=== PATIENT | male | born 1970 | race Caucasian/White ===

== ENCOUNTER 2020-09-11 11:39 | Outpatient (REF) | payer OTHER, SELFPAY | END 2020-09-11 11:40 | disposition home or self-care (01) | LOC: HO.LAB 11:39 | PROVIDERS: PCP Physician Assistant; Visit Provider Internal Medicine | DX: Z20.828 Contact with and (suspected) exposure to other viral communicable diseases (principal) | CPT/HCPCS: 87635 ==

== ENCOUNTER 2020-11-28 07:56 | Day surgery (SDC) | payer OTHER, SELFPAY ==
[2020-11-21 09:38] VITALS: BMI 34.4
--- NOTE | 2020-11-26 13:53 | P.CONAN_ITS ---
Documented by User: Mirian Hernandez 11/26/20 13:53 HPI - Anesthesia Eval Consult details Narrative: 50yo M for Colonoscopy [facility] Past Medical History Medical History BPH (benign prostatic hyperplasia) History of anxiety Hypertension Lipoma Family History Family History Father Hypertension Mother No problems noted. Daughter Autism Sister Non-Hodgkin lymphoma Brother Myocardial infarction Surgical History Surgical History History of arthroscopy of right knee History of left knee surgery Social History Social History Are you a primary memory care program resident to a significant other at home: No Do you presently have visiting nurse or other home services: No Smoking Status: Never smoker Advance Directives: No Advance Directives Information Provided: No Advance Directives on File: No Recently lost weight without trying: No Meds Allergies Allergy/AdvReac Type Severity Reaction Status Date / Time No Known Allergies Allergy Verified 11/21/20 09:35 Home Medications Medication Instructions Recorded Confirmed Type hydrochlorothiazide 1 cap PO QAM 11/21/20 11/21/20 History hydroxyzine HCl 1 tab PO Q12H PRN 11/21/20 11/21/20 History tamsulosin 0.4 mg PO DAILY 11/21/20 11/21/20 History Exam Exam Date and Time: November 26, 2020 1353 Height,Weight and Vital Signs: Height 5 ft 9 in Weight 105.687 kg Assessment and Plan Assessment Anesthesia Assessment: Chart Reviewed Documented by User: Abilio Moreno 11/28/20 09:25 [facility] Past Medical History Medical History BPH (benign prostatic hyperplasia) History of anxiety Hypertension Lipoma Family History Family History Father Hypertension Mother No problems noted. Daughter Autism Sister Non-Hodgkin lymphoma Brother Myocardial infarction Surgical History Surgical History History of arthroscopy of right knee History of left knee surgery Social History Social History Are you a primary memory care program resident to a significant other at home: No Do you presently have visiting nurse or other home services: No Smoking Status: Never smoker Advance Directives: No Advance Directives Information Provided: No Advance Directives on File: No Recently lost weight without trying: No Meds Allergies Allergy/AdvReac Type Severity Reaction Status Date / Time No Known Allergies Allergy Verified 11/21/20 09:35 Home Medications Medication Instructions Recorded Confirmed Type hydrochlorothiazide 1 cap PO QAM 11/21/20 11/21/20 History hydroxyzine HCl 1 tab PO Q12H PRN 11/21/20 11/21/20 History tamsulosin 0.4 mg PO DAILY 11/21/20 11/21/20 History Exam Airway Mallampati Class: III TM Dist: >3cm Neck ROM: Full Loose/Missing/Broken Teeth: No Heart: [id number] Lungs: cta b/l Assessment and Plan Assessment Anesthesia Assessment: Anesthesia Plan Discussed and Chart Reviewed Final Anesthetic Review NPO: Yes ASA Class: II Final Preanesthetic Review: No Changes in Pt Med Stat, Meds/Allgs Chart Reviewed, Consent Obtained/Reviewed and Anes Risks/Benef Reviewed Patient Risk: Low Procedure Risk: Low Assessment/Block/Sedation in SS: Assess/Block/Sedation-SS Anesthetic Plan Anesthetic Plan: MAC: Disposition: Standard PACU
--- NOTE | 2020-11-28 08:36 | PC.NURSE ---
while inserting an iv patient became nauseous and slightly pale with some diaphoresis. patient states he gets that way sometimes when he gets some bloodwork. put patient supine, opened fluids and applied coold cloth to forehead.
[2020-11-28] MEDS: Lactated Ringers 1,000 ML 100 ML IVCONT (08:38)
[2020-11-28 08:39] VITALS: BP 135/80; PULSE 67; RESP 16; O2SAT 95
--- NOTE | 2020-11-28 08:49 | PC.NURSE ---
PATIENT STATES HE FEELS BETTER. REMOVED COOL CLOTH AND SAT PATIENT UP HOB 45 DEGREES. DECREASED FLUID BOLUS RECEIVED APPROX 300ML
[2020-11-28 08:53] VITALS: BP 130/82; PULSE 69; RESP 16; O2SAT 94
--- NOTE | 2020-11-28 09:14 | MHC.SHP ---
Pre-Procedural Eval Section B Chief Complaint: Screening Relevant Family History (Specify if Yes): No Relevant Social History: None Present Medications: see Short Stay Collaborative assessment Medical History: Significant History (BPH (benign prostatic hyperplasia) History of anxiety Hypertension Lipoma) History of Previous Operations: Relevant previous surgery/procedure and date(s) (arthroscopy) Allergies: Allergies Allergy/AdvReac Type Severity Reaction Status Date / Time No Known Allergies Allergy Verified 11/21/20 09:35 Review of Systems Sugical H&P ROS: Negative: Constitution, Cardiovascular, Respiratory, Neurological, Psychiatric, Hem-Onc, Allergic/Immunologic, Gastrointestinal, Genitourinary, Musculoskeletal, Integumentary, Endocrine and Eyes/Ears/Nose/Throat Exam Surgical H&P Exam: Normal: HEENT, Normal: Heart, Normal: Lungs, Normal: Extremities, Normal: Abdomen, Normal: Skin and Normal: Neurological Plan Diagnosis/Plan: Unchanged I have reviewed the history and physical and performed a pertinent physical examination on my patient. No changes have occurred unless specified.
--- NOTE | 2020-11-28 09:15 | P.BOP_ITS ---
Brief Operative Note Date of Service: 11/28/20 Pre-op diagnosis: colon screening Post-op diagnosis: same Procedure: Operative Information Procedure Description: Colonoscopy COLONOSCOPY Instrument: Olympus variable stiffness pediatric scope 190L Colonoscopy Monitoring: Vital signs and clinical assessment, continuous EKG monitoring, Pulse oximetry, Carbon Dioxide monitoring and blood pressure monitoring were done throughout the procedure. Colon withdrawal time was 8 minutes. Procedure: The patient was placed in the left lateral decubitis position and pre-procedure medications were administered. After a digital rectal examination of the ano-rectum, the video colonoscope was inserted into the rectum and advanced through the colon to the cecum/TI. The colonoscope was slowly withdrawn in a retrograde panoramic fashion and the colon mucosa was carefully examined including a retroflexed view of the rectum. Findings and interventions are described below. Procedure Difficulty:easy Findings: Terminal Ileum-normal Cecum:normal Ascending Colon: normal Transverse Colon -normal Descending Colon:normal Sigmoid Colon: normal Rectum: Retroflexion with small internal hemorrhoids, grade I Anorectum - normal Colon preparation: [place] Bowel Preparation Scale Right colon; 3 Transverse colon: 3 Left colon; 3 (0 = Unprepared colon segment with mucosa not seen due to solid stool that cannot be cleared. 1 = Portion of mucosa of the colon segment seen, but other areas of the colon segment not well seen due to staining, residual stool and/or opaque liquid. 2 = Minor amount of residual staining, small fragments of stool and/or opaque liquid, but mucosa of colon segment seen well. 3 = Entire mucosa of colon segment seen well with no residual staining, small fragments of stool or opaque liquid) Impression and Post Procedure Diagnosis: internal hemorrhoids Plan: High fiber diet leaflet Avoid straining at stool, epsom salts and sitz bath, anusol supps or cream Repeat Colonoscopy in 10 years or earlier if clinically indicated Above findings were reviewed with the patient and relevant handouts were provided if indicated. Surgeon: Kinsey Prado MD Anesthesia: MAC Estimated blood loss (mL): 0 Condition: stable Disposition: PACU
[2020-11-28 09:56] VITALS: BP 115/64; PULSE 67; RESP 16; TEMP 36.3; O2SAT 99
[2020-11-28 10:10] VITALS: BP 144/85; PULSE 62; RESP 16; TEMP 36.3; O2SAT 98
--- NOTE | 2020-11-28 10:23 | HO.POSTANES ---
Post Anesthesia Evaluation Post Anesthesia Evaluation Vital Signs: Vital Signs Temp Pulse Resp BP Pulse Ox 11/28/20 10:10 97.3 F 62 16 144/85 H 98 11/28/20 09:56 97.3 F 67 16 115/64 99 11/28/20 08:53 69 16 130/82 94 11/28/20 08:39 67 16 135/80 95 Anesthesia: Monitored Mental Status: Awake Pain Control: Satisfactory Nausea/Vomiting: None Hydration: Adequate Anesthesia-Related Issues: No Anes. Related Issues
== END 2020-11-28 10:49 | disposition home or self-care (01) ==
PROVIDERS: PCP Physician Assistant; Visit Provider Internal Medicine Gastroenterology
PROC: 0DJD8ZZ Inspection of Lower Intestinal Tract, Via Natural or Artificial Opening Endoscopic (ICD-10-PCS; CPT 45378; principal; 2020-11-28 09:30)
DX: Z12.11 Encounter for screening for malignant neoplasm of colon (principal); K64.0 First degree hemorrhoids; I10 Essential (primary) hypertension; N40.0 Benign prostatic hyperplasia without lower urinary tract symptoms; Z79.899 Other long term (current) drug therapy
CPT/HCPCS: 45378

== ENCOUNTER → 2020-12-11 09:37 | Outpatient (BNVA) | payer OTHER, SELFPAY | PROVIDERS: PCP Physician Assistant; Visit Provider Nurse Practitioner ==

== ENCOUNTER → 2021-10-02 10:26 | Outpatient (BNVA) | payer OTHER, SELFPAY | PROVIDERS: PCP Physician Assistant; Referring Provider Physician Assistant; Visit Provider Internal Medicine Cardiovascular Disease ==

== ENCOUNTER → 2021-10-06 09:43 | Outpatient (REF) | payer OTHER, SELFPAY ==
--- NOTE | 2021-10-06 09:49 | CA_ITS ---
Acquisition Time: 2021-10-06 09:46:22 Total Exercise Time: 00:04:22 Test Indications: Abnormal ECG Medications: HCTZ METOPROLOL Protocol: ADELFO Max HR: 134 BPM 79% of Pred: 168 BPM Max BP: 230/100 mmHG Max Work Load: 6.2 METS Exercise stress test with exercise 4 min 22 sec of Adelfo protocol, achieving 80% MPHR, with elevated BP at baseline of 166/102 and marcos to 230/100 during exercise, without anginal symptoms, without arrythmia, with nondiagnostic EKG for ischemia due to suboptimal heart rate and baseline EKG abnormality. In recovery his BP improved back to baseline, 160/100. He took his Metoprolol this am. He tells me that he does Not take HCTZ as he does not like how it makes him feel. Test reviewed with Dr Garg. Will start on Amlodipine 5mg daily. Will plan for exercise nuclear stress test in 2 weeks. Referred By: Miguel Angel Garg Overread By: CAITLYN ANGELA
--- NOTE | 2021-10-06 09:49 | CA_ITS ---
Transthoracic Echocardiogram Patient (Last, First, Middle): Levi Welsh J Gender: Male Date of : 1970 Age: 51 Procedure Date: 10/06/2021 Procedure Type: Transthoracic Echocardiogram Location: OP Height: 175.26 cm Weight: 109.77 kg BSA: 2.24 m2 Heart Rate: bpm BP: 140 / 62 mmHg Rest Room Attendant: LAYLA Referring MD: Miguel Angel Garg MD Symptoms: R94.31 - Abnormal electrocardiogram [ECG] [EKG] Study Quality: Fair/Contrast ECG Rhythm: Sinus Conclusions: - The left ventricular systolic function is normal. The visually estimated ejection fraction is between 65-70%. - There is mild calcification of the aortic valve. - No obvious valvular pathology seen on this study. Findings Procedure Information Contrast agent, definity, is being given per protocol without apparent complications. Left Ventricle Normal left ventricular cavity size. There is moderately increased left ventricular wall thickness. The left ventricular systolic function is normal. The visually estimated ejection fraction is between 65-70%. There is no evidence of regional wall motion abnormalities. Diastolic function is normal for age. Right Ventricle Normal right ventricular cavity size and systolic function. Atria Both atria are normal in size. Aortic Valve The aortic valve was not well visualized. There is mild calcification of the aortic valve. There is no aortic valve stenosis. There is trace (trivial) aortic valve regurgitation. Mitral Valve The mitral valve appears normal. There is no mitral valve regurgitation. There is no mitral valve stenosis. Pulmonic Valve The pulmonic valve was not well visualized. Tricuspid Valve Normal tricuspid valve structure. There is no tricuspid valve regurgitation. The pulmonary artery systolic pressure is normal. Great Vessels The aortic annulus, sinuses of valsalva, asc aorta, and aortic arch are normal in size. Venous The inferior vena cava is normal in size and collapses greater than 50% with inspiration. Pericardium/Pleural There is no evidence of pericardial effusion. Prior Study Comparison No prior study available for comparison. Recommendations, Care & Conclusions No obvious valvular pathology seen on this study. Measurements 2D Linear Measurements IVSd: 1.15 0.6-0.9/0.6-1.0 cm LVIDd: 4.32 3.9-5.3/4.2-5.9 cm LVIDd Index: 1.93 2.4-3.2/2.2-3.1 cm/m2 LVIDs: 2.82 2.0-3.6 cm LVPWd: 1.19 0.7-1.1 cm Ao Root: 3.20 2.1-3.5 cm LA Diam: 3.40 2.7-3.8/3.0-4.0 cm LAIDs Index: 1.52 1.5-2.3 cm/m2 LV Mass: 223.38 67-162/88-224 g LV Mass Index: 99.72 43-95/49-115 g/m2 LVOT Diam: 2.00 3.0+(-)1.3 cm 2D Systolic Function EF 4C: 63.80 >55% EF 2C: 62.00 >55% EF BiP: 63.10 >55% Mitral Valve MV Pk E: 0.77 MV PK A: 0.65 MV Decel Time: 257.00 E/A: 1.20 E'Lateral: 8.16 E'Medial: 6.53 E/E' Med: 11.70 E/E' Lat: 9.40 PHT: 75.00 MVA PHT: 2.93 Decel [place]: 2.98 Aortic Valve AoV Pk Sanchez: 1.87 AoV Mn Sanchez: 1.32 AoV VTI: 0.37 AoV Pk Grad: 14.00 Aov Mn Grad: 8.00 ANTONIO Cont.VTI: 2.22 LVOT LVOT Pk Sanchez: 1.41 LVOT Mn Sanchez: 0.96 LVOT VTI: 0.27 LVOT Pk Grad: 8.00 LVOT Mn Grad: 4.00 LVOT Diam: 2.00 LVOT Area: 3.14 Diastolic Function MV Pk E: 0.77 MV Pk A: 0.65 E/A: 1.20 E'Medial: 6.53 E/E' Med: 11.70 E' Laterial: 8.16 E/E' Lat: 9.40 Right Ventricle TAPSE (mm): 2.19 TVS' Sanchez: 12.70 Tricuspid Valve TR Pk Sanchez: 1.75 TR Pk Grad: 12.00 RA Press: 3.00 RVSP: 15.00 Great Vessels Aorta Ao Root-2D: 3.20 2.0-3.7 cm Ao Asc: 3.20 2.1-3.4 cm Ao Arch: 3.00 Updated in Other Vendor System with Status of Final Thony Erickson MD electronically signed on 10/06/2021 4:59:44 PM with status of Final
== END ==
LOC: HO.CARD 09:43
PROVIDERS: PCP Physician Assistant; Visit Provider Internal Medicine Cardiovascular Disease
DX: R94.31 Abnormal electrocardiogram [ECG] [EKG] (principal)
CPT/HCPCS: 93017; 93306; Q9957

== ENCOUNTER → 2021-10-15 07:52 | Outpatient (REF) | payer OTHER, SELFPAY ==
--- NOTE | ~2021-10-15 | NM_ITS ---
Myocardial perfusion study Indication: Hypertension to evaluate for myocardial ischemia Technique: The patient was brought in for a Lexiscan perfusion study on 10/15/2021. Patient performed low-level exercise and was injected 0.4 mg of Lexiscan intravenously. Within a minute of injection, 40 mCi of sestamibi was given intravenously. Images were obtained using the SPECT gamma camera interlaced with the gating device. Images were obtained in supine position. Resting perfusion study was performed on 10/20/2021. Patient was administered 40 mCi of sestamibi intravenously at rest. Images were then obtained in supine position. Images obtained with and without CT attenuation. Total DLP 116 mGy-cm. Images were processed with the software and compared side to side in short axis, horizontal long axis and vertical long axis views. Findings: The stress perfusion study showed non attenuated images show minimally reduced uptake in the basal and mid inferior wall of the LV myocardium. Remainder of the LV myocardium normally perfused. Attenuation corrected images show normal uptake of radiotracer in all segments of LV myocardium with minimally reduced the apex.. The gated study shows low normal LV systolic function with calculated LVEF of 52%. LV cavity is normal in size. The gated study shows normal systolic wall thickening and contraction of segments. Resting study shows nontender images show no significant change in uptake in radiotracer of LV myocardium. Attenuation corrected images show mildly reduced uptake in the apex of the LV myocardium. Gating at rest reveals normal systolic wall motion with ejection fraction at 55%. The findings are consistent with likely normal myocardial perfusion. NM/NM cardiolite stress test Impression: 1. Myocardial perfusion imaging study shows likely normal myocardial perfusion 2. Gated LVEF is 55% 3. Transient ischemic dilatation not present EKG is nondiagnostic for ischemia
--- NOTE | 2021-10-15 08:00 | CA_ITS ---
Acquisition Time: 2021-10-15 08:31:01 Total Exercise Time: 00:07:01 Test Indications: Abnormal ECG Medications: AMLODIPINE METOPROLOL Protocol: LIVIA Max HR: 129 BPM 76% of Pred: 168 BPM Max BP: 162/090 mmHG Max Work Load: 8.5 METS Exercise stress test with exercise 7 min 1 sec of Livia protocol achieving 76% MPHR and request to stop due to fatigue, no chest discomfort, without arrythmia, with normotensive response to exercise, with nondiagnostic EKG for ischemia. Treadmill placed in recoveryand slowed to 1 MPH. Testing changed to a pharmacological stress test with Lexiscan injection, without anginal symptoms, without arrythmia, with normotensive response to injection, with nondiagnostic EKG for ischemia. Nuclear images pending. Test reviewed with Dr Garg. Referred By: Makayla Elizabeth Overread By: MAKAYLA ELIZABETH
== END ==
LOC: HO.CARD 07:52
PROVIDERS: PCP Physician Assistant; Visit Provider Nurse Practitioner Family
DX: I10 Essential (primary) hypertension (principal); I51.7 Cardiomegaly; R94.31 Abnormal electrocardiogram [ECG] [EKG]; Z79.899 Other long term (current) drug therapy
CPT/HCPCS: 78452; 93017; A9500; J0280; J2785

== ENCOUNTER → 2021-10-23 12:53 | Outpatient (BNVA) | payer OTHER, SELFPAY | PROVIDERS: PCP Physician Assistant; Referring Provider Physician Assistant; Visit Provider Nurse Practitioner Family ==

== ENCOUNTER 2021-12-18 11:47 | Outpatient (REF) | payer OTHER, SELFPAY ==
[2021-12-18 12:58] LABS: Alanine Aminotransferase 66 U/L (0-40); Albumin Level 4.5 g/dL (3.5-5.0); Alkaline Phosphatase 122 U/L (39-117); Anion Gap 12 (12-20); Aspartate Amino Transferase 48 U/L (5-37); Bilirubin Total 0.7 mg/dL (0.0-1.0); Blood Urea Nitrogen 22 mg/dL (9-16); Calcium 9.9 mg/dL (8.4-10.2); Carbon Dioxide 25 mmol/L (22-29); Chloride 105 mmol/L (96-108); Cholesterol 137 mg/dL; Estimated Glomerular Filt Rate > 60; Glucose Fasting 105 mg/dL (60-99); HDL Cholesterol 37 mg/dL; LDL Cholesterol Calculated 83 mg/dl; Potassium 4.4 mmol/L (3.3-5.1); Sodium 138 mmol/L (135-145); Total Protein 7.8 g/dL (6.5-8.0); Triglycerides 85 mg/dL
[2021-12-18 13:22] LABS: Prostate Specific Antigen Scr 3.31 ng/mL (<0.05-4.0)
[2021-12-19 08:56] LABS: Varicella IgG Antibody <135.00 index
== END 2021-12-18 11:48 | disposition home or self-care (01) ==
LOC: HO.LAB 11:47
PROVIDERS: Absent Provider Physician Assistant; PCP Physician Assistant; Referring Provider Physician Assistant; Visit Provider Nurse Practitioner Family
DX: Z01.84 Encounter for antibody response examination (principal); Z12.5 Encounter for screening for malignant neoplasm of prostate; I11.9 Hypertensive heart disease without heart failure; Z78.9 Other specified health status
CPT/HCPCS: 36415; 80053; 80061; 84153; 86787

== ENCOUNTER 2023-09-22 11:30 | Outpatient (AMB) | payer OTHER, SELFPAY ==
[2023-09-22 11:43] VITALS: BP 152/94; PULSE 75; RESP 17; O2SAT 98; BMI 36.4
--- NOTE | 2023-09-22 11:43 | MHC.PC.OV ---
Vital Signs 09/22/23 11:43 Height 5 ft 9 in Weight 246 lb 8 oz BMI 36.4 BP 152/94 H Blood Pressure Location Lt brachial Position Sitting Respiration 17 Pulse 75 Pulse Source Pulse Oximeter Pulse Oximetry (%) 98 Oxygen Delivery Method Room Air Intake Visit Reasons: follow up HTN Allergies No Known Allergies Allergy (Verified 09/22/23 12:13) Medication List - Last Reconciled 09/22/23 by Dmitri Alicia PA-C amlodipine 5 mg PO DAILY metoprolol succinate ER 100 mg PO DAILY Tobacco use date assessed: 09/22/23 Dental Screening Dental Screen Date: 09/22/23 Did you have a dental visit in the last 12 months?: Yes Did you have a dental problem in the last 6 months where you did not have access to dental care?: No Was dental information given to patient?: Patient has dentist HPI follow up HTN HPI Details Patient is a 53-year-old male here today for a follow-up visit. Patient has a past medical history significant for hypertension, LVH, obesity. .. Hypertension: Patient's blood pressure elevated today in office. He was sent home blood pressures been stable on current dose of metoprolol and amlodipine. He otherwise denies any chest discomfort, shortness of breath, headaches. He does report having an episode vertigo which he was seen at urgent care was treated for ear infection which subsided his symptoms. Apneic episodes: Does report snoring at night and needing to sleep in a different room as his due to the loud snoring. He does have risk factors for obstructive sleep apnea including large neck girth, obesity ect.. Of note does have LVH on EKG. Farn[place] Sleepiness Scale score of 8 today in office. Will try to set him up with an home sleep study to evaluate for obstructive sleep apnea [facility] Medical History (Updated 09/22/23 @ 13:01 by Dmitri Alicia PA-C) Colon cancer screening Hypertensive heart disease LVH (left ventricular hypertrophy) History of anxiety BPH (benign prostatic hyperplasia) Lipoma Hypertension Surgical History Hx of colonoscopy History of left knee surgery History of arthroscopy of right knee Family History Father Hypertension Mother No problems noted. Daughter Autism Sister Non-Hodgkin lymphoma Brother Myocardial infarction Social History Household Members: Family Housing: House Are you a primary healthcare consultant to a significant other at home: No Do you presently have visiting nurse or other home services: No Alcohol intake: current Alcohol intake frequency: a few times a week Patient Tobacco Use Status: Never used Tobacco e-Cigarette/Vaping Use: Never Used service: No Current occupational status: employed Cognitive needs: No Hearing needs: No Vision needs: No Questionnaire PHQ-9 Over the last 2 weeks, how often have you been bothered by any of the following problems? 1. Little interest or pleasure in doing things: not at all 2. Feeling down, depressed, or hopeless: not at all 3. Trouble falling or staying asleep, or sleeping too much: not at all 4. Feeling tired or having little energy: not at all 5. Poor appetite or overeating: not at all 6. Feeling bad about yourself - or that you are a failure or have let yourself or your family down: not at all 7. Trouble concentrating on things, such as reading the newspaper or watching television: not at all 8. Moving or speaking so slowly that other people could have noticed. Or the opposite - being so fidgety or restless that you have been moving around a lot more than usual: not at all 9. Thoughts that you would be better off or of hurting yourself in some way: not at all Total score: 0 Depression Screening Interpretation: Negative Depression Screening Done: Yes 43555 - PHQ-9 Billing: Yes Source: Developed by Drs. Levi Salgado, Mayra Ibarra, Shabbir Mills and colleagues, with an educational carisa from [employer]. Thrive Questionnaire Date Thrive assessed: 09/22/23 I am a: Patient What is your living situation today?: I have a steady place to live Within the past 12 months, did the food you bought not last and you didn't have the money to get more?: Never true Within the past 12 months, did you worry whether your food would run out before you got money to buy more?: Never true Do you have trouble paying for medicines?: No Do you have trouble getting transportation to medical appointments?: No Do you have trouble paying your heating and electricity bill?: No Do you have trouble taking care of your child, family member or friend?: No Do you have trouble with day-to-day activities such as bathing, preparing meals, shopping, managing finances, etc.?: No Are you currently unemployed and looking for a job?: No Are you interested in more education?: No Please select the resources that you would like help with: None Currently or been in a relationship where the following occur: no concerns reported AUDIT C Alcohol Use Questionnaire (AUDIT-C) 1. How often do you have a drink containing alcohol?: Monthly or less 2. How many drinks containing alcohol do you have on a typical day when you are drinking?: 1 or 2 3. How often do you have six or more drinks on one occasion?: Never Total Score: 1 JAMI-7 AMB Questionnaire JAIM-7 Date JAMI - 7 assessed: 09/22/23 Feeling nervous, anxious, or on edge: 0 = Not at all Not being able to stop or control worryin = Not at all Worrying too much about different things: 0 = Not at all Trouble relaxin = Not at all Being so restless that it is hard to sit still: 0 = Not at all Becoming easily annoyed or irritable: 0 = Not at all Feeling afraid as if something awful might happen: 0 = Not at all Total JAMI-7 score (0-4 normal; 5-9 mild; 10-14 moderate; 15-21 severe): 0 Source: Developed by Drs. Levi Salgado, Mayra Ibarra, Shabbir Mills and colleagues, with an educational carisa from [employer]. JAMI-7 Assessment Billing JAMI-7 Assessment Tool: JAMI-7 Assessment 54519 Review of Systems Const Denies headache(s) Eyes Denies loss of vision ENT Denies vertigo, Denies dizziness, Denies headache(s) and Denies sore throat Card Denies chest pain, Denies leg edema and Denies lightheadedness Resp Denies cough, Denies hemoptysis and Denies wheezing GI Denies abdominal pain, Denies melena, Denies constipation, Denies diarrhea and Denies vomiting Denies dysuria, Denies urinary frequency and Denies urinary urgency Musc Denies arthralgias, Denies joint swelling, Denies numbness and Denies tingling Neuro Denies Abnormal speech present, Denies behavioral changes, Denies vertigo, Denies dizziness, Denies headache(s), Denies loss of vision, Denies memory loss, Denies numbness and Denies tingling Psych Denies anxiety, Denies behavioral changes, Denies depression, Denies memory loss and Denies panic attacks Bob/Lymph Denies easy bleeding and Denies easy bruising Aller/Immun Denies wheezing Physical exam (Primary Care) Vital Signs: Last Vital Signs Pulse 75 09/22/23 11:43 Resp 17 09/22/23 11:43 BP 152/94 H 09/22/23 11:43 Pulse Ox 98 09/22/23 11:43 Oxygen Delivery Method Room Air 09/22/23 11:43 BMI result Body Mass Index 36.4 BMI Assessment/Plan discussion: High Tobacco/Smoking Status: Tobacco use Status Tobacco use date assessed 09/22/23 09/22/23 11:56 Patient Tobacco Use Status Never used Tobacco 09/22/23 11:43 e-Cigarette/Vaping Use Never Used 09/22/23 11:43 PHQ-9: PHQ-9 Score PHQ-9: Total score 0 09/22/23 12:19 Depression Screening Interpretation: Negative Thrive Assessment: Date of Thrive Assessment Date Thrive assessed 09/22/23 09/22/23 11:53 Currently or been in a relationship where the following occur: no concerns reported Const Other: Obese General: healthy appearing, no acute distress, alert and awake Nutritional Appearance: well nourished Orientation/consciousness: oriented to person, oriented to place and oriented to time HENMT Ears: TM's normal bilaterally General nose exam: Normal nasal mucous membranes and turbinates present Eyes Conjunctivae: conjunctivae normal Sclerae: sclerae normal Pupils: Equal, round and reactive pupils present Neck Neck: Yes no lymphadenopathy and Yes no JVD Thyroid: Thyroid normal Carotids: no bruits Resp Effort & Inspection: normal respiratory effort and not tachypneic Auscultation: no crackles, no rales, no rhonchi and no wheezes Cardio Rate: regular rate Rhythm: regular rhythm Heart sounds: no murmurs and normal S1 and S2 GI Palpation (GI): Soft to palpation, nontender, no hepatomegaly and no splenomegaly Auscultation: normal bowel sounds Skin General skin exam: no rashes or lesions noted and dry skin Neuro General: oriented to person, oriented to place and oriented to time Cranial nerves: Yes Equal, round and reactive pupils present Speech: No Abnormal speech present Gait exam (Neuro): Normal gait present Motor exam (neuro): no tremor noted Extrem Right upper extremity: full ROM Left upper extremity: full ROM Right lower extremity: full ROM; no edema Left lower extremity: full ROM; no edema Psych Mental Status: mental status grossly normal Speech and movement: Normal speech and movement present Affect: normal affect Attitude: cooperative Thought process: Normal thought process present Assessment and Plan Assessment & Plan (1) Hypertension: Code(s): I10 - Essential (primary) hypertension Qualifiers: Hypertension type: primary hypertension Qualified Code(s): I10 - Essential (primary) hypertension Plan: Patient's blood pressure today in office elevated. Of note did gain weight since last office visit. He reports his blood pressures at home have been more regularly controlled 120s over 80s. He denies any headaches, chest pain or shortness of breath. Will continue his current of amlodipine and metoprolol at this time. Will continue monitoring blood pressure at home. (2) JOEY (obstructive sleep apnea): Code(s): G47.33 - Obstructive sleep apnea (adult) (pediatric) Plan: There are some concerns here for obstructive sleep apnea. Patient is obese and does have large neck girth. Does report some daytime somnolence as well. Farnham Sleepiness Scale score of 8. Will send for home sleep study to evaluate for obstructive sleep apnea. (3) Obese: Code(s): E66.9 - Obesity, unspecified Qualifiers: Obesity type: due to excess calories Obesity classification: adult class 2 (BMI 35 - 39.9) Serious obesity comorbidity presence: with serious comorbidity Body mass index: BMI 36.0-36.9 Qualified Code(s): E66.01 - Morbid (severe) obesity due to excess calories; Z68.36 - Body mass index [BMI] 36.0-36.9, adult Plan: Patient does understand his BMI is over 30 will work on being more physically active and adapting to better eating habits to reduce his weight. Orders: Orders Lipid Panel Today I11.9 - Hypertensive heart disease without heart failure Microalbumin, Random (w Creat) Today I10 - Essential (primary) hypertension Comprehensive [place]. Panel Fast Today I10 - Essential (primary) hypertension Complete Blood Count no Diff Today I10 - Essential (primary) hypertension Prostate Specific Antigen Scr Today I11.9 - Hypertensive heart disease without heart failure, Z12.5 - Encounter for screening for malignant neoplasm of prostate RT home sleep study Today G47.33 - Obstructive sleep apnea (adult) (pediatric) Medications: Changed From metoprolol succinate ER 100 mg PO DAILY 30 tabs 0RF I10 - Essential (primary) hypertension To metoprolol succinate ER 100 mg PO DAILY 90 days 90 tabs 1RF I10 - Essential (primary) hypertension From amlodipine Please call to schedule an appt for refills 5 mg PO DAILY 30 tabs 0RF I10 - Essential (primary) hypertension To amlodipine 5 mg PO DAILY 90 days 90 tabs 1RF I10 - Essential (primary) hypertension Coding Level of Care Code Est Pt Level 4 (10075) Diagnoses Primary hypertension I10 Hypertension type: primary hypertension JOEY (obstructive sleep apnea) G47.33 Class 2 severe obesity due to excess calories with serious comorbidity and body mass index (BMI) of 36.0 to 36.9 in adult E66.01; Z68.36 Obesity type: due to excess calories Obesity classification: adult class 2 (BMI 35 - 39.9) Serious obesity comorbidity presence: with serious comorbidity Body mass index: BMI 36.0-36.9 Additional Codes JAMI-7 Assessment Billing - JAMI-7 Assessment Tool: JAMI-7 Assessment [id number] ([id number])
== END 2023-09-22 12:31 | disposition home or self-care (01) ==
PROVIDERS: PCP Physician Assistant; Visit Provider Physician Assistant
DX: I10 Essential (primary) hypertension (principal); G47.33 Obstructive sleep apnea (adult) (pediatric); E66.01 Morbid (severe) obesity due to excess calories; Z68.36 Body mass index [BMI] 36.0-36.9, adult
CPT/HCPCS: 99214

== ENCOUNTER 2023-09-30 10:57 | Outpatient (REF) | payer OTHER, SELFPAY ==
[2023-09-30 12:03] LABS: Hematocrit 46.5 % (42.0-52.0); Hemoglobin 15.8 g/dl (14.0-18.0); Mean Corpuscular Volume 88.2 fL (80.0-98.0); Mean Platelet Volume 10.2 fL (9.4-12.4); Platelet Count 317 X10*3/uL (160-400); Red Blood Count 5.27 X10*6/uL (4.60-5.80); Red Cell Distribution Width 11.9 % (11.0-16.0); White Blood Count 8.5 X10*3/uL (4.8-10.8)
[2023-09-30 12:45] LABS: Creatinine Urine 212.96 mg/dL; Microalbum/Creatinine Ratio Ur 48.8 ug/mg cr (<30)
[2023-09-30 12:52] LABS: Alanine Aminotransferase 69 U/L (0-40); Albumin Level 4.3 g/dL (3.5-5.0); Alkaline Phosphatase 154 U/L (39-117); Anion Gap 10 (12-20); Aspartate Amino Transferase 53 U/L (5-37); Bilirubin Total 0.6 mg/dL (0.0-1.0); Blood Urea Nitrogen 18 mg/dL (9-16); Calcium 9.2 mg/dL (8.4-10.2); Carbon Dioxide 28 mmol/L (22-29); Chloride 106 mmol/L (96-108); Cholesterol 147 mg/dL (<200); Estimated Glomerular Filt Rate > 60; Glucose Fasting 108 mg/dL (60-99); HDL Cholesterol 41 mg/dL (>40); LDL Cholesterol Calculated 92 mg/dL (<100); Potassium 4.3 mmol/L (3.3-5.1); Sodium 140 mmol/L (135-145); Total Protein 7.6 g/dL (6.5-8.0); Triglycerides 70 mg/dL (<150)
== END 2023-09-30 10:58 | disposition home or self-care (01) ==
LOC: HO.LAB 10:57
PROVIDERS: PCP Physician Assistant; Visit Provider Physician Assistant
DX: Z12.5 Encounter for screening for malignant neoplasm of prostate (principal); I11.9 Hypertensive heart disease without heart failure
CPT/HCPCS: 36415; 80053; 80061; 82043; 82570; 84153; 85027

== ENCOUNTER → 2023-11-02 12:49 | Outpatient (REF) | payer OTHER, SELFPAY | LOC: HO.SL 12:49 | PROVIDERS: PCP Physician Assistant; Visit Provider Physician Assistant | DX: Z13.89 Encounter for screening for other disorder (principal) ==

== ENCOUNTER 2024-01-05 09:59 | Outpatient (AMB) | payer OTHER, SELFPAY ==
[2024-01-05 10:27] VITALS: BP 120/74; PULSE 60; O2SAT 95; BMI 35.9
--- NOTE | 2024-01-05 10:27 | A.OFFPC_ITS ---
Vital Signs 01/05/24 10:27 Height 5 ft 9 in Weight 243 lb 6 oz BMI 35.9 BP 120/74 Blood Pressure Location Lt brachial Position Sitting Pulse 60 Pulse Source Pulse Oximeter Pulse Oximetry (%) 95 Oxygen Delivery Method Room Air Intake Visit Reasons: 3 month f/u [employer] Required: No Accompanied by: Self / Same As Patient Allergies No Known Allergies Allergy (Verified 01/05/24 10:47) Medication List - Last Reconciled 01/05/24 by Dmitri Alicia PA-C amlodipine 5 mg PO DAILY 90 days metoprolol succinate ER 100 mg PO DAILY 90 days Tobacco use date assessed: 01/05/24 Dental Screening Dental Screen Date: 01/05/24 Did you have a dental visit in the last 12 months?: Yes Did you have a dental problem in the last 6 months where you did not have access to dental care?: No Was dental information given to patient?: Patient has dentist HPI 3 month f/u HPI Details Patient is a 53-year-old male here today for a follow-up visit. Patient has a past medical history significant for hypertension, LVH, obesity. Concern--> reports having increased anxiety and work-related stress. He is interested in speaking to a mental therapist in starting medication for his anxiety. .. Obesity: He has lost a few lb since last office visit, has been more physically active and going to the gym several times a week. .. Hypertension: Patient's blood pressure today in office acceptable He was sent home blood pressures been stable on current dose of metoprolol and amlodipine. He otherwise denies any chest discomfort, shortness of breath, headaches. . Apneic episodes: Was unable to tolerate sleep study. He is holding off on being evaluated for obstructive sleep apnea for now. Laboratory Tests 10/24/18 05/29/20 09/30/23 09:08 12:13 11:26 Fasting Glucose AST 44 H 44 H ALT 63 H Alkaline Phosphata se Cholesterol PSA Screen Urine Microalbumin 104.0 09/30/23 09/30/23 11:27 11:27 Fasting Glucose 108 H AST 53 H ALT 69 H Alkaline Phosphata se 154 H Cholesterol 147 PSA Screen 3.00 Urine Microalbumin PFSH Medical History (Updated 01/05/24 @ 10:53 by Dmitri Alicia PA-C) Colon cancer screening Hypertensive heart disease LVH (left ventricular hypertrophy) History of anxiety BPH (benign prostatic hyperplasia) Lipoma Hypertension Surgical History Hx of colonoscopy History of left knee surgery History of arthroscopy of right knee Family History Father Hypertension Mother No problems noted. Daughter Autism Sister Non-Hodgkin lymphoma Brother Myocardial infarction Social History Household Members: Family Housing: House Are you a primary disabilities caregiver to a significant other at home: No Do you presently have visiting nurse or other home services: No Alcohol intake: current Alcohol intake frequency: a few times a week Patient Tobacco Use Status: Never used Tobacco e-Cigarette/Vaping Use: Never Used service: No Current occupational status: employed Cognitive needs: No Hearing needs: No Vision needs: No Questionnaire PHQ-9 Over the last 2 weeks, how often have you been bothered by any of the following problems? 1. Little interest or pleasure in doing things: not at all 2. Feeling down, depressed, or hopeless: not at all 3. Trouble falling or staying asleep, or sleeping too much: not at all 4. Feeling tired or having little energy: not at all 5. Poor appetite or overeating: not at all 6. Feeling bad about yourself - or that you are a failure or have let yourself or your family down: not at all 7. Trouble concentrating on things, such as reading the newspaper or watching television: not at all 8. Moving or speaking so slowly that other people could have noticed. Or the opposite - being so fidgety or restless that you have been moving around a lot more than usual: not at all 9. Thoughts that you would be better off or of hurting yourself in some way: not at all Total score: 0 Depression Screening Interpretation: Negative Depression Screening Done: Yes 87545 - PHQ-9 Billing: Yes Source: Developed by Drs. Levi Salgado, Mayra Ibarra, Shabbir Mills and colleagues, with an educational carisa from [employer]. Thrive Questionnaire Date Thrive assessed: 01/05/24 I am a: Patient What is your living situation today?: I have a steady place to live Within the past 12 months, did the food you bought not last and you didn't have the money to get more?: Never true Within the past 12 months, did you worry whether your food would run out before you got money to buy more?: Never true Do you have trouble paying for medicines?: No Do you have trouble getting transportation to medical appointments?: No Do you have trouble paying your heating and electricity bill?: No Do you have trouble taking care of your child, family member or friend?: No Do you have trouble with day-to-day activities such as bathing, preparing meals, shopping, managing finances, etc.?: No Are you currently unemployed and looking for a job?: No Are you interested in more education?: No Please select the resources that you would like help with: None Currently or been in a relationship where the following occur: no concerns reported THRIVE Score: 0 AUDIT C Alcohol Use Questionnaire (AUDIT-C) 1. How often do you have a drink containing alcohol?: Monthly or less 2. How many drinks containing alcohol do you have on a typical day when you are drinking?: 1 or 2 3. How often do you have six or more drinks on one occasion?: Never Total Score: 1 JAMI-7 AMB Questionnaire JAMI-7 Date JAMI - 7 assessed: 01/05/24 Feeling nervous, anxious, or on edge: 0 = Not at all Not being able to stop or control worryin = Not at all Worrying too much about different things: 0 = Not at all Trouble relaxin = Not at all Being so restless that it is hard to sit still: 0 = Not at all Becoming easily annoyed or irritable: 0 = Not at all Feeling afraid as if something awful might happen: 0 = Not at all Total JAMI-7 score (0-4 normal; 5-9 mild; 10-14 moderate; 15-21 severe): 0 Source: Developed by Drs. Levi Salgado, Mayra Ibarra, Shabbir Mills and colleagues, with an educational carisa from [employer]. JAMI-7 Assessment Billing JAMI-7 Assessment Tool: JAMI-7 Assessment 81409 Review of Systems Const Denies excessive sweating, Denies fatigue and Denies headache(s) Eyes Denies loss of vision ENT Denies vertigo, Denies dizziness, Denies headache(s) and Denies sore throat Card Denies chest pain, Denies leg edema and Denies lightheadedness Resp Denies cough, Denies hemoptysis and Denies wheezing GI Denies abdominal pain, Denies melena, Denies constipation, Denies diarrhea and Denies vomiting Denies dysuria, Denies urinary frequency and Denies urinary urgency Musc Denies arthralgias, Denies joint swelling, Denies numbness and Denies tingling Skin/Breast Denies rash and Denies skin ulcer Neuro Denies Abnormal speech present, Denies behavioral changes, Denies vertigo, Denies dizziness, Denies headache(s), Denies loss of vision, Denies memory loss, Denies numbness and Denies tingling Psych Denies anxiety, Denies behavioral changes, Denies depression, Denies memory loss and Denies panic attacks Endo Denies excessive sweating, Denies fatigue, Denies flushing, Denies polydipsia and Denies polyuria Bob/Lymph Denies easy bleeding and Denies easy bruising Aller/Immun Denies wheezing Physical exam (Primary Care) Vital Signs: Last Vital Signs Pulse 60 01/05/24 10:27 BP 120/74 01/05/24 10:27 Pulse Ox 95 01/05/24 10:27 Oxygen Delivery Method Room Air 01/05/24 10:27 BMI result Body Mass Index 35.9 Tobacco/Smoking Status: Tobacco use Status Tobacco use date assessed 01/05/24 01/05/24 10:29 Patient Tobacco Use Status Never used Tobacco 01/05/24 10:27 e-Cigarette/Vaping Use Never Used 01/05/24 10:27 PHQ-9: PHQ-9 Score PHQ-9: Total score 0 01/05/24 10:38 Depression Screening Interpretation: Negative Thrive Assessment: Date of Thrive Assessment Date Thrive assessed 01/05/24 01/05/24 10:38 Currently or been in a relationship where the following occur: no concerns reported Const General: healthy appearing, no acute distress, alert and awake Nutritional Appearance: well nourished Orientation/consciousness: oriented to person, oriented to place and oriented to time HENMT Head: Yes normocephalic Ears: TM's normal bilaterally General nose exam: Normal nasal mucous membranes and turbinates present Face and sinus: No sinus tenderness Mouth: Normal oral and palatal mucosa present and tongue normal Teeth and gingiva: dentition normal and gingiva normal Throat: Yes posterior oropharynx normal, Yes tonsils normal and Yes uvula midline Eyes Conjunctivae: conjunctivae normal Sclerae: sclerae normal Pupils: Equal, round and reactive pupils present EOM: EOMs intact bilaterally Direct Ophthalmoscopy: No no photophobia Neck Neck: Yes no lymphadenopathy and Yes no JVD Thyroid: Thyroid normal Carotids: no bruits Chest Chest palpation & inspection: no tenderness Resp Effort & Inspection: normal respiratory effort and not tachypneic Auscultation: no crackles, no rales, no rhonchi and no wheezes Cardio Jugular venous distension: no JVD Rate: regular rate Rhythm: regular rhythm Heart sounds: no murmurs and normal S1 and S2 Bruits: no carotid bruits Peripheral pulses: Peripheral pulses 2+ throughout GI Inspection: Yes normal to inspection, No abdominal wall ecchymosis and No visible herniation Palpation (GI): Soft to palpation, nontender, no hepatomegaly and no splenomegaly Auscultation: normal bowel sounds General: Yes no CVA tenderness Back/Spine/Pelvis Back: no CVA tenderness and No back tenderness Cervical Spine: cervical ROM normal Thoracic/Lumbar Spine: thoracic and lumbar spine normal to inspection, straight leg raise negative bilaterally, No thoraco-lumbar ROM limited and No lumbar spinal tenderness Skin General skin exam: no rashes or lesions noted and dry skin Lesions: no lesions Rashes: no rashes Wounds: no wounds Neuro General: oriented to person, oriented to place and oriented to time Cranial nerves: Yes Equal, round and reactive pupils present Cognition (Neuro): normal cognition Speech: No Abnormal speech present Gait exam (Neuro): Normal gait present Motor exam (neuro): no tremor noted Extrem Right upper extremity: full ROM Left upper extremity: full ROM Right lower extremity: full ROM; no edema Left lower extremity: full ROM; no edema Psych Appearance: grossly normal Mental Status: mental status grossly normal Speech and movement: Normal speech and movement present Affect: normal affect Attitude: cooperative Thought process: Normal thought process present Assessment and Plan Assessment & Plan (1) Hypertension: Code(s): I10 - Essential (primary) hypertension Qualifiers: Hypertension type: primary hypertension Qualified Code(s): I10 - Essential (primary) hypertension Plan: Patient's blood pressure today acceptable. Of note did gain weight since last office visit. He reports his blood pressures at home have been more regularly controlled 120s- 130s over 80s. He denies any headaches, chest pain or shortness of breath. Will continue his current of amlodipine and metoprolol at this time. Will continue monitoring blood pressure at home. (2) JOEY (obstructive sleep apnea): Code(s): G47.33 - Obstructive sleep apnea (adult) (pediatric) Plan: Was unable to tolerate sleep study. . [place] Sleepiness Scale score of 8. (3) Obese: Code(s): E66.9 - Obesity, unspecified Qualifiers: Obesity type: due to excess calories Obesity classification: adult class 2 (BMI 35 - 39.9) Serious obesity comorbidity presence: with serious comorbidity Body mass index: BMI 36.0-36.9 Qualified Code(s): E66.01 - Morbid (severe) obesity due to excess calories; Z68.36 - Body mass index [BMI] 36.0- 36.9, adult Plan: Has lost a few lb since last office visit, has been going to the gym regularly. Patient does understand his BMI is over 30 will work on being more physically active and adapting to better eating habits to reduce his weight. (4) Erectile dysfunction: Code(s): N52.9 - Male erectile dysfunction, unspecified Qualifiers: Erectile dysfunction type: due to other cause Qualified Code(s): N52.8 - Other male erectile dysfunction Plan: Reports having issues with erectile dysfunction would like to try medication before sexual activity. (5) JAMI (generalized anxiety disorder): Code(s): F41.1 - Generalized anxiety disorder Plan: He reports he is interested in speaking to a mental health therapist about his anxiety. A lot of his trigger is his disabled daughter in his work related stress. He is interested in also starting SSRI therapy on a daily basis to reduce his anxiety. Will follow-up in 4 weeks to evaluate the effectiveness of the medication Orders: Orders Microalbumin, Random (w Creat) Today I10 - Essential (primary) hypertension Lipid Panel Today I11.9 - Hypertensive heart disease without heart failure Comprehensive [place]ely. Panel Fast Today I10 - Essential (primary) hypertension Prostate Specific Antigen Scr Today I10 - Essential (primary) hypertension, Z12.5 - Encounter for screening for malignant neoplasm of prostate Referrals Counseling Referral F41.1 - Generalized anxiety disorder, Z13.220 - Encounter for screening for lipoid disorders Medications: New citalopram (Celexa) 10 mg PO DAILY 30 days 30 tabs 3RF F41.1 - Generalized anxiety disorder sildenafil 100 mg PO DAILY 5 days 5 tabs 0RF N52.8 - Other male erectile dysfunction Refilled amlodipine 5 mg PO DAILY 90 days 90 tabs 1RF I10 - Essential (primary) hypertension metoprolol succinate ER 100 mg PO DAILY 90 days 90 tabs 1RF I10 - Essential (primary) hypertension Coding Level of Care Code Est Pt Level 4 (21330) Diagnoses Primary hypertension I10 Hypertension type: primary hypertension JOEY (obstructive sleep apnea) G47.33 Class 2 severe obesity due to excess calories with serious comorbidity and body mass index (BMI) of 36.0 to 36.9 in adult E66.01; Z68.36 Obesity type: due to excess calories Obesity classification: adult class 2 (BMI 35 - 39.9) Serious obesity comorbidity presence: with serious comorbidity Body mass index: BMI 36.0-36.9 Other male erectile dysfunction N52.8 Erectile dysfunction type: due to other cause JAMI (generalized anxiety disorder) F41.1 Additional Codes JAMI-7 Assessment Billing - JMAI-7 Assessment Tool: JAMI-7 Assessment 79388 ([id number])
== END 2024-01-05 11:06 | disposition home or self-care (01) ==
PROVIDERS: PCP Physician Assistant; Visit Provider Physician Assistant
DX: I10 Essential (primary) hypertension (principal); G47.33 Obstructive sleep apnea (adult) (pediatric); E66.01 Morbid (severe) obesity due to excess calories; Z68.36 Body mass index [BMI] 36.0-36.9, adult; N52.8 Other male erectile dysfunction; F41.1 Generalized anxiety disorder
CPT/HCPCS: 99214

== ENCOUNTER 2024-02-03 10:13 | Outpatient (AMB) | payer OTHER, SELFPAY ==
--- NOTE | 2024-02-03 10:11 | A.OFFPC_ITS ---
Intake Visit Reasons: f/u anxiety med ( telehealth) Shipping Lead Person Required: No Accompanied by: Self / Same As Patient Allergies No Known Allergies Allergy (Verified 02/03/24 10:24) Medication List - Last Reconciled 02/03/24 by Dmitri Alicia PA-C amlodipine 5 mg PO DAILY 90 days citalopram (Celexa) 10 mg PO DAILY 30 days metoprolol succinate ER 100 mg PO DAILY 90 days sildenafil 100 mg PO DAILY 5 days Tobacco use date assessed: 01/05/24 HPI f/u anxiety med ( telehealth) HPI Details Patient is a 53-year-old male being evaluated today via telephone only. At last visit we discussed his generalized anxiety disorder and was willing to start low-dose SSRI therapy. Was started on Celexa 10 mg. He reports he feels well and does not feel the need to speak with a [facility] therapist at this time. He reports his anxiety is much better controlled. He would like to stay on current dose of SSRI therapy. [facility] Medical History (Updated 01/05/24 @ 10:53 by Dmitri Alicia PA-C) Colon cancer screening Hypertensive heart disease LVH (left ventricular hypertrophy) History of anxiety BPH (benign prostatic hyperplasia) Lipoma Hypertension Surgical History Hx of colonoscopy History of left knee surgery History of arthroscopy of right knee Family History Father Hypertension Mother No problems noted. Daughter Autism Sister Non-Hodgkin lymphoma Brother Myocardial infarction Social History Household Members: Family Housing: House Are you a primary critical care nurse specialist to a significant other at home: No Do you presently have visiting nurse or other home services: No Alcohol intake: current Alcohol intake frequency: a few times a week Patient Tobacco Use Status: Never used Tobacco e-Cigarette/Vaping Use: Never Used service: No Current occupational status: employed Cognitive needs: No Hearing needs: No Vision needs: No Questionnaire Thrive Questionnaire Date Thrive assessed: 01/05/24 JAMI-7 AMB Questionnaire JAMI-7 Date JAMI - 7 assessed: 01/05/24 Source: Developed by Drs. Levi Salgado, Mayra Ibarra, Shabbir Mills and colleagues, with an educational carisa from [employer]. Review of Systems Const Denies headache(s) Eyes Denies loss of vision ENT Denies vertigo, Denies dizziness, Denies headache(s) and Denies sore throat Card Denies chest pain, Denies leg edema and Denies lightheadedness Resp Denies cough, Denies hemoptysis and Denies wheezing GI Denies abdominal pain, Denies melena, Denies constipation, Denies diarrhea and Denies vomiting Denies dysuria, Denies urinary frequency and Denies urinary urgency Musc Denies arthralgias, Denies joint swelling, Denies numbness and Denies tingling Neuro Denies behavioral changes, Denies vertigo, Denies dizziness, Denies headache(s), Denies loss of vision, Denies memory loss, Denies numbness and Denies tingling Psych Denies anxiety, Denies behavioral changes, Denies depression, Denies memory loss and Denies panic attacks Bob/Lymph Denies easy bleeding and Denies easy bruising Aller/Immun Denies wheezing Physical exam (Primary Care) Tobacco/Smoking Status: Tobacco use Status Tobacco use date assessed 01/05/24 02/03/24 10:13 Patient Tobacco Use Status Never used Tobacco 02/03/24 10:13 e-Cigarette/Vaping Use Never Used 02/03/24 10:13 Thrive Assessment: Date of Thrive Assessment Date Thrive assessed 01/05/24 02/03/24 10:13 Telehealth Telehealth Location of provider rendering services: practice address Location of patient: address on file Patient Identification confirmed using: Name, : Yes Telehealth method: voice only Patient verbally consented to treatment: Yes Patient verbally consented to billing insurance company: Yes Patient informed of any privacy concerns related to visit: Yes Minutes spent on Phone/Video with Pt.: 11 Assessment and Plan Assessment & Plan (1) JAMI (generalized anxiety disorder): Code(s): F41.1 - Generalized anxiety disorder Plan: As per HPI he reports his anxiety has been much better controlled since starting Celexa 10 mg. He reports he does not feel the need to speak with a mental health therapist at this time as his anxiety has been much better. He would like to continue current dose of SSRI therapy. Medications: Changed From citalopram (Celexa) 10 mg PO DAILY 30 days 30 tabs 3RF F41.1 - Generalized anxiety disorder To citalopram (Celexa) 10 mg PO DAILY 90 tabs 2RF 90 days F41.1 - Generalized anxiety disorder Coding Level of Care Code Tele Est Pt Level 3 (28118) Diagnoses JAMI (generalized anxiety disorder) F41.1
== END 2024-02-03 12:47 | disposition home or self-care (01) ==
LOC: HO.HMGH 10:13
PROVIDERS: PCP Physician Assistant; Visit Provider Physician Assistant
DX: F41.1 Generalized anxiety disorder (principal)
CPT/HCPCS: 99213

== ENCOUNTER 2024-07-13 14:18 | Outpatient (AMB) | payer OTHER, SELFPAY ==
[2024-07-13 14:26] VITALS: BP 142/84; PULSE 74; O2SAT 95; BMI 35.9
--- NOTE | 2024-07-13 14:26 | A.OFFPC_ITS ---
Vital Signs 07/13/24 14:26 Height 5 ft 9 in Weight 243 lb 4 oz BMI 35.9 BP 142/84 H Blood Pressure Location Lt brachial Position Sitting Pulse 74 Pulse Source Pulse Oximeter Pulse Oximetry (%) 95 Oxygen Delivery Method Room Air Intake Visit Reasons: pe Intake Note: Patient is here today for a physical. 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 Patient has a past medical history significant for hypertension, LVH, obesity. .. Hypertension: Patient's blood pressure today in office slightly elevated. He reports that home blood pressures are fairly stable 120s to 130 systolic. He was sent home blood pressures been stable on current dose of metoprolol and amlodipine. He otherwise denies any chest discomfort, shortness of breath, headaches. . Apneic episodes: Was unable to tolerate sleep study. He is holding off on being evaluated for obstructive sleep apnea for now. Colorectal cancer screening: Colonoscopy done in 2020, normal repeat 10 years Vaccines: Up-to-date with COVID vaccine, tetanus vaccine, PFSH Medical History (Updated 07/13/24 @ 15:01 by Dmitri Alicia PA-C) Colon cancer screening Hypertensive heart disease LVH (left ventricular hypertrophy) History of anxiety BPH (benign prostatic hyperplasia) Lipoma Hypertension Surgical History Hx of colonoscopy History of left knee surgery History of arthroscopy of right knee Family History Father Hypertension Mother No problems noted. Daughter Autism Sister Non-Hodgkin lymphoma Brother Myocardial infarction Social History Household Members: Family Housing: House Are you a primary wound care coordinator to a significant other at home: No Do you presently have visiting nurse or other home services: No Alcohol intake: current Alcohol intake frequency: a few times a week Patient Tobacco Use Status: Never used Tobacco e-Cigarette/Vaping Use: Never Used service: No Current occupational status: employed Cognitive needs: No Hearing needs: No Vision needs: No Questionnaire Thrive Questionnaire Date Thrive assessed: 01/05/24 JAMI-7 AMB Questionnaire JAMI-7 Date JAMI - 7 assessed: 01/05/24 Source: Developed by Drs. Levi Salgado, Mayra Ibarra, Shabbir Mills and colleagues, with an educational carisa from [employer]. Review of Systems Const Denies body aches, Denies chills, Denies excessive sweating, Denies fatigue, Denies fever(s) and Denies headache(s) Eyes Denies blurry vision ENT Denies dysphagia, Denies vertigo, Denies dizziness, Denies headache(s), Denies hearing loss and Denies tinnitus Card Denies chest pain, Denies chest pain with activity, Denies syncope, Denies irregular heart rhythm and Denies dyspnea Resp Denies chest congestion, Denies cough, Denies hemoptysis, Denies dyspnea and Denies wheezing GI Denies abdominal pain, Denies melena, Denies hematochezia, Denies coffee ground emesis, Denies dysphagia, Denies diarrhea, Denies nausea and Denies vomiting Denies difficulty urinating, Denies dysuria, Denies urinary frequency, Denies urinary hesitancy and Denies urinary urgency Musc Denies arthralgias, Denies limited range of motion, Denies muscle cramps and Denies muscle weakness Skin/Breast Denies rash and Denies skin ulcer Neuro Denies Abnormal speech present, Denies confusion, Denies vertigo, Denies dizziness, Denies syncope, Denies headache(s), Denies memory loss and Denies seizure-like activity Psych Denies anxiety, Denies confusion, Denies depression, Denies memory loss, Denies panic attacks and Denies paranoia Endo Denies excessive sweating, Denies fatigue, Denies flushing, Denies polydipsia and Denies polyuria Aller/Immun Denies wheezing Physical exam (Primary Care) Vital Signs: Last Vital Signs Pulse 74 07/13/24 14:26 BP 142/84 H 07/13/24 14:26 Pulse Ox 95 07/13/24 14:26 Oxygen Delivery Method Room Air 07/13/24 14:26 BMI result Body Mass Index 35.9 Tobacco/Smoking Status: Tobacco use Status Tobacco use date assessed 01/05/24 07/13/24 14:26 Patient Tobacco Use Status Never used Tobacco 07/13/24 14:26 e-Cigarette/Vaping Use Never Used 07/13/24 14:26 Thrive Assessment: Date of Thrive Assessment Date Thrive assessed 01/05/24 07/13/24 14:26 Const General: cooperative, comfortable, no acute distress, alert and awake; No confusion Orientation/consciousness: oriented to person, oriented to place, patient oriented x3 and No confusion HENMT Head: Yes normocephalic Ears: external ears normal and TM's normal bilaterally Face and sinus: No sinus tenderness Mouth: Normal oral and palatal mucosa present and tongue normal Teeth and gingiva: dentition normal and gingiva normal Throat: Yes posterior oropharynx normal, Yes tonsils normal and Yes uvula midline Eyes Conjunctivae: conjunctivae normal Sclerae: sclerae normal Pupils: Equal, round and reactive pupils present EOM: EOMs intact bilaterally Direct Ophthalmoscopy: No no photophobia Neck Neck: Yes no lymphadenopathy, No tender and Yes no JVD Thyroid: Thyroid normal Carotids: no bruits Chest Chest palpation & inspection: no tenderness Resp Effort & Inspection: normal respiratory effort, no audible wheezes, not labored and no stridor Auscultation: no crackles, no rales, no rhonchi and no wheezes Cardio Jugular venous distension: no JVD Rate: regular rate, not bradycardic and not tachycardic Rhythm: regular rhythm Bruits: no carotid bruits Peripheral pulses: Peripheral pulses 2+ throughout GI Inspection: Yes normal to inspection, No abdominal wall ecchymosis and No visible herniation Palpation (GI): Soft to palpation, nontender, no guarding, not rigid and No hepatosplenomegaly present Auscultation: normoactive bowel sounds General: Yes no CVA tenderness Back/Spine/Pelvis Back: no CVA tenderness and No back tenderness Cervical Spine: cervical ROM normal Thoracic/Lumbar Spine: thoracic and lumbar spine normal to inspection, straight leg raise negative bilaterally, No thoraco-lumbar ROM limited and No lumbar spinal tenderness Skin Lesions: no lesions Rashes: no rashes Wounds: no wounds Neuro General: oriented to person, oriented to place, patient oriented x3, CN's II-XI intact bilaterally and No confusion Cranial nerves: Yes Equal, round and reactive pupils present and Yes Normal accommodation reflex present Cognition (Neuro): normal cognition Speech: No Abnormal speech present Gait exam (Neuro): Normal gait present Motor exam (neuro): 5/5 motor strength present throughout Extrem Right upper extremity: full ROM; no cyanosis Left upper extremity: full ROM; no cyanosis Right lower extremity: no edema Left lower extremity: no edema Psych Appearance: grossly normal Mental Status: mental status grossly normal Affect: normal affect Attitude: cooperative Thought process: Normal thought process present Assessment and Plan Assessment & Plan (1) Annual physical exam: Code(s): Z00.00 - Encounter for general adult medical examination without abnormal findings (2) Hypertension: Code(s): I10 - Essential (primary) hypertension Qualifiers: Hypertension type: primary hypertension Qualified Code(s): I10 - Essential (primary) hypertension Plan: Patient's blood pressure today slightly elevated today in office. He does not regularly monitor his blood pressure at home regularly and was start doing so. Will likely need a higher dose of amlodipine to 10 mg. Goal blood pressure to be below 140/90 (3) Erectile dysfunction: Code(s): N52.9 - Male erectile dysfunction, unspecified Qualifiers: Erectile dysfunction type: due to other cause Qualified Code(s): N52.8 - Other male erectile dysfunction Plan: Reports having issues with erectile dysfunction would like to try medication before sexual activity. (4) JAMI (generalized anxiety disorder): Code(s): F41.1 - Generalized anxiety disorder Plan: He reports his anxiety has been much better since starting citalopram. Medications: Refilled metoprolol succinate ER 100 mg PO DAILY 90 tabs 1RF 90 days I10 - Essential (primary) hypertension amlodipine 5 mg PO DAILY 90 tabs 1RF 90 days I10 - Essential (primary) hypertension Patient Instructions: Goal: Blood pressure to be below 140/90 Barrier: Adherence to physical activity and healthy eating habits Coding Level of Care Code Est Pt Prev Care 40-64y(14902) Diagnoses Annual physical exam Z00.00 Primary hypertension I10 Hypertension type: primary hypertension Other male erectile dysfunction N52.8 Erectile dysfunction type: due to other cause JAMI (generalized anxiety disorder) F41.1
== END 2024-07-13 15:18 | disposition home or self-care (01) ==
PROVIDERS: PCP Physician Assistant; Visit Provider Physician Assistant
DX: Z00.00 Encounter for general adult medical examination without abnormal findings (principal); I10 Essential (primary) hypertension; N52.8 Other male erectile dysfunction; F41.1 Generalized anxiety disorder
CPT/HCPCS: 99396

== ENCOUNTER 2025-01-02 09:13 | Outpatient (REF) | payer OTHER, SELFPAY ==
[2025-01-02 13:00] LABS: Alanine Aminotransferase 69 U/L (0-40); Albumin Level 4.4 g/dL (3.5-5.0); Alkaline Phosphatase 115 U/L (39-117); Anion Gap 12 (12-20); Aspartate Amino Transferase 57 U/L (5-37); Bilirubin Total 0.8 mg/dL (0.0-1.0); Blood Urea Nitrogen 20 mg/dL (9-16); Calcium 9.3 mg/dL (8.4-10.2); Carbon Dioxide 24 mmol/L (22-29); Chloride 109 mmol/L (96-108); Cholesterol 146 mg/dL (<200); Estimated Glomerular Filt Rate > 60; Glucose Fasting 99 mg/dL (60-99); HDL Cholesterol 47 mg/dL (>40); LDL Cholesterol Calculated 79 mg/dL (<100); Potassium 3.9 mmol/L (3.3-5.1); Sodium 141 mmol/L (135-145); Triglycerides 100 mg/dL (<150)
[2025-01-02 13:10] LABS: Creatinine Urine 240.98 mg/dL; Microalbum/Creatinine Ratio Ur 66.8 ug/mg cr (<30)
[2025-01-02 13:12] LABS: Prostate Specific Antigen Scr 2.87 ng/mL (<0.05-4.0)
== END 2025-01-02 09:14 | disposition home or self-care (01) ==
LOC: HO.LAB 09:13
PROVIDERS: PCP Physician Assistant; Visit Provider Physician Assistant
DX: I11.9 Hypertensive heart disease without heart failure (principal); Z12.5 Encounter for screening for malignant neoplasm of prostate
CPT/HCPCS: 36415; 80053; 80061; 82043; 82570; 84153

== ENCOUNTER 2025-01-15 09:49 | Outpatient (AMB) | payer OTHER, SELFPAY ==
--- NOTE | 2025-01-15 09:58 | A.OFFPC_ITS ---
Vital Signs 01/15/25 10:00 01/15/25 10:35 Height 5 ft 9 in Weight 248 lb BMI 36.6 BP 164/98 H 150/98 H Blood Pressure Location Lt brachial Position Sitting Pulse 71 Pulse Source Pulse Oximeter Pulse Oximetry (%) 98 Oxygen Delivery Method Room Air Intake Visit Reasons: 6 month follow up HTN Traffic I Manager Required: No Accompanied by: Self / Same As Patient Allergies No Known Allergies Allergy (Verified 01/15/25 10:28) Medication List - Last Reconciled 01/15/25 by Dmitri Alicia PA-C amlodipine 5 mg PO DAILY 90 days citalopram (Celexa) 10 mg PO DAILY 90 days metoprolol succinate ER 100 mg PO DAILY 90 days tadalafil (Cialis) 20 mg PO DAILY 30 days Tobacco use date assessed: 01/15/25 Dental Screening Dental Screen Date: 01/15/25 Did you have a dental visit in the last 12 months?: Yes Did you have a dental problem in the last 6 months where you did not have access to dental care?: No Was dental information given to patient?: Patient has dentist HPI 6 month follow up HTN HPI Details Patient is a 54-year-old male here today for follow-up visit. Patient has a past medical history significant for hypertension, LVH, obesity. Concern--> he does report having some nocturia and weak urinary stream as of late. Does have signs of BPH. Will supply patient with tamsulosin for his weak urinary stream. PSAs has been stable. .. Hypertension: Patient's blood pressure today in office elevated today in office. He has been trying to be more physically active to lose weight. He does check his blood pressure from time to time at home and reports 130s to 140 systolic He was sent home blood pressures been stable on current dose of metoprolol and amlodipine. Unfortunately noted microalbuminuria likely secondary to his elevated blood pressure readings. He otherwise denies any chest discomfort, shortness of breath, headaches. .. Elevated liver enzymes: Appears to be chronic finding for patient. Advised on getting an ultrasound of the abdomen evaluate for fatty liver disease though patient declines at this time. He will continue working on weight reduction. [facility] Medical History Colon cancer screening Hypertensive heart disease LVH (left ventricular hypertrophy) History of anxiety BPH (benign prostatic hyperplasia) Lipoma Hypertension Surgical History Hx of colonoscopy History of left knee surgery History of arthroscopy of right knee Family History Father Hypertension Mother No problems noted. Daughter Autism Sister Non-Hodgkin lymphoma Brother Myocardial infarction Social History Household Members: Family Housing: House Are you a primary hemodialysis patient care specialist to a significant other at home: No Do you presently have visiting nurse or other home services: No Alcohol intake: current Alcohol intake frequency: a few times a week Patient Tobacco Use Status: Never used Tobacco e-Cigarette/Vaping Use: Never Used Second Hand Smoke Exposure: No service: No Current occupational status: employed Cognitive needs: No Hearing needs: No Vision needs: No Questionnaire PHQ-9 Over the last 2 weeks, how often have you been bothered by any of the following problems? 1. Little interest or pleasure in doing things: not at all 2. Feeling down, depressed, or hopeless: not at all 3. Trouble falling or staying asleep, or sleeping too much: not at all 4. Feeling tired or having little energy: not at all 5. Poor appetite or overeating: not at all 6. Feeling bad about yourself - or that you are a failure or have let yourself or your family down: not at all 7. Trouble concentrating on things, such as reading the newspaper or watching television: not at all 8. Moving or speaking so slowly that other people could have noticed. Or the opposite - being so fidgety or restless that you have been moving around a lot more than usual: not at all 9. Thoughts that you would be better off or of hurting yourself in some way: not at all Total score: 0 Depression Screening Interpretation: Negative Depression Screening Done: Yes 06011 - PHQ-9 Billing: Yes Source: Developed by Drs. Levi Salgado, Mayra Ibarra, Shabbir Mills and colleagues, with an educational carisa from [employer]. Thrive Questionnaire Date Thrive assessed: 01/15/25 I am a: Patient What is your living situation today?: I have a steady place to live Within the past 12 months, did the food you bought not last and you didn't have the money to get more?: Never true Within the past 12 months, did you worry whether your food would run out before you got money to buy more?: Never true Do you have trouble paying for medicines?: No Do you have trouble getting transportation to medical appointments?: No Do you have trouble paying your heating and electricity bill?: No Do you have trouble taking care of your child, family member or friend?: No Do you have trouble with day-to-day activities such as bathing, preparing meals, shopping, managing finances, etc.?: No Are you currently unemployed and looking for a job?: No Are you interested in more education?: No Please select the resources that you would like help with: None Currently or been in a relationship where the following occur: No concerns reported THRIVE Score: 0 AUDIT C Alcohol Use Questionnaire (AUDIT-C) 1. How often do you have a drink containing alcohol?: Monthly or less 2. How many drinks containing alcohol do you have on a typical day when you are drinking?: 1 or 2 3. How often do you have six or more drinks on one occasion?: Never Total Score: 1 JAMI-7 AMB Questionnaire JAMI-7 Date JMAI - 7 assessed: 01/15/25 Feeling nervous, anxious, or on edge: 0 = Not at all Not being able to stop or control worryin = Not at all Worrying too much about different things: 0 = Not at all Trouble relaxin = Not at all Being so restless that it is hard to sit still: 0 = Not at all Becoming easily annoyed or irritable: 0 = Not at all Feeling afraid as if something awful might happen: 0 = Not at all Total JAMI-7 score (0-4 normal; 5-9 mild; 10-14 moderate; 15-21 severe): 0 Source: Developed by Drs. Levi Salgado, Mayra Ibarra, Shabbir Mills and colleagues, with an educational carisa from [employer] JAMI-7 Assessment Billing JAMI-7 Assessment Tool: JAMI-7 Assessment 41703 Review of Systems Const Denies headache(s) Eyes Denies loss of vision ENT Denies vertigo, Denies dizziness, Denies headache(s) and Denies sore throat Card Denies chest pain, Denies leg edema and Denies lightheadedness Resp Denies cough, Denies hemoptysis and Denies wheezing GI Denies abdominal pain, Denies melena, Denies constipation, Denies diarrhea and Denies vomiting Denies dysuria, Denies urinary frequency and Denies urinary urgency Musc Denies arthralgias, Denies joint swelling, Denies numbness and Denies tingling Neuro Denies Abnormal speech present, Denies behavioral changes, Denies vertigo, Denies dizziness, Denies headache(s), Denies loss of vision, Denies memory loss, Denies numbness and Denies tingling Psych Denies anxiety, Denies behavioral changes, Denies depression, Denies memory loss and Denies panic attacks Bob/Lymph Denies easy bleeding and Denies easy bruising Aller/Immun Denies wheezing Physical exam (Primary Care) Vital Signs: Last Vital Signs Pulse 71 01/15/25 10:00 BP 150/98 H 01/15/25 10:35 Pulse Ox 98 01/15/25 10:00 Oxygen Delivery Method Room Air 01/15/25 10:00 BMI result Body Mass Index 36.6 BMI Assessment/Plan discussion: High BMI High, discussed plan: lifestyle, weight reduction, dietary and physical activity Tobacco/Smoking Status: Tobacco use Status Tobacco use date assessed 01/15/25 01/15/25 10:06 Patient Tobacco Use Status Never used Tobacco 01/15/25 10:06 e-Cigarette/Vaping Use Never Used 01/15/25 10:06 PHQ-9: PHQ-9 Score PHQ-9: Total score 0 01/15/25 10:25 Depression Screening Interpretation: Negative Thrive Assessment: Date of Thrive Assessment Date Thrive assessed 01/15/25 01/15/25 10:06 Currently or been in a relationship where the following occur: No concerns reported Const General: healthy appearing, no acute distress, alert and awake Nutritional Appearance: well nourished Orientation/consciousness: oriented to person, oriented to place and oriented to time HENMT Ears: TM's normal bilaterally General nose exam: Normal nasal mucous membranes and turbinates present Eyes Conjunctivae: conjunctivae normal Sclerae: sclerae normal Pupils: Equal, round and reactive pupils present Neck Neck: Yes no lymphadenopathy and Yes no JVD Thyroid: Thyroid normal Carotids: no bruits Resp Effort & Inspection: normal respiratory effort and not tachypneic Auscultation: no crackles, no rales, no rhonchi and no wheezes Cardio Rate: regular rate Rhythm: regular rhythm Heart sounds: no murmurs and normal S1 and S2 GI Palpation (GI): Soft to palpation, nontender, no hepatomegaly and no splenomegal y Auscultation: normal bowel sounds Skin General skin exam: no rashes or lesions noted and dry skin Neuro General: oriented to person, oriented to place and oriented to time Cranial nerves: Yes Equal, round and reactive pupils present Speech: No Abnormal speech present Gait exam (Neuro): Normal gait present Motor exam (neuro): no tremor noted Extrem Right upper extremity: full ROM Left upper extremity: full ROM Right lower extremity: full ROM; no edema Left lower extremity: full ROM; no edema Psych Mental Status: mental status grossly normal Speech and movement: Normal speech and movement present Affect: normal affect Attitude: cooperative Thought process: Normal thought process present Coding Level of Care Code Est Pt Level 4 (60075) Diagnoses Primary hypertension I10 Hypertension type: primary hypertension Elevated liver enzymes R74.8 BPH associated with nocturia N40.1; R35.1 Microalbuminuria R80.9 Additional Codes PHQ-9 - 46196 - PHQ-9 Billing: Yes ([id number]) JAMI-7 Assessment Billing - JAMI-7 Assessment Tool: JAMI-7 Assessment 71946 ([id number]) Assessment & Plan Assessment & Plan (1) Hypertension: Code(s): I10 - Essential (primary) hypertension Category: Medical Qualifiers: Hypertension type: primary hypertension Qualified Code(s): I10 - Essential (primary) hypertension Plan: Patient's blood pressure remains elevated. Has LVH on EKG. Will increase his amlodipine dose to maximal dose of 10 mg. Have noted microalbuminuria Will consider Edmundo or Arb at next visit. He will continue to monitor blood pressure at home with goal blood pressure to be below 140/90. (2) Elevated liver enzymes: Code(s): R74.8 - Abnormal levels of other serum enzymes Category: Medical Plan: Patient continues to have chronic elevation in his liver enzymes. I Suspecting has fatty liver disease. Offered ultrasound the patient like to hold off for now Will work on lifestyle and weight management. (3) BPH associated with nocturia: Code(s): N40.1 - Benign prostatic hyperplasia with lower urinary tract symptoms; R35.1 - Nocturia Category: Medical Plan: Has noted weak urinary stream and nocturia. Will supply patient with tamsulosin to use on a daily basis for his signs symptoms of BPH (4) Microalbuminuria: Code(s): R80.9 - Proteinuria, unspecified Category: Medical Plan: As above, have noted a microalbuminuria likely secondary to his hypertension. Work on blood pressure control Orders: Orders Microalbumin, Random (w Creat) Today I10 - Essential (primary) hypertension Comprehensive [place]. Panel Fast Today I10 - Essential (primary) hypertension Complete Blood Count no Diff Today I10 - Essential (primary) hypertension Medications: New amlodipine 10 mg PO DAILY 90 tabs 1RF 90 days I10 - Essential (primary) hypertension tamsulosin 0.4 mg PO DAILY 90 caps 1RF 90 days N40.1 - Benign prostatic hyperplasia with lower urinary tract symptoms, R35.1 - Nocturia Discontinued amlodipine Discontinued Reason: Doctor's Order 5 mg PO DAILY 90 days 90 tabs 1RF I10 - Essential (primary) hypertension Patient Instructions: Goal: Blood pressure to be below 140/90 Barriers: Adherence to physical activity and healthy eating habits
[2025-01-15 10:00] VITALS: BP 164/98; PULSE 71; O2SAT 98; BMI 36.6
[2025-01-15 10:35] VITALS: BP 150/98
== END 2025-01-15 10:46 | disposition home or self-care (01) ==
PROVIDERS: PCP Physician Assistant; Visit Provider Physician Assistant
DX: I10 Essential (primary) hypertension (principal); R74.8 Abnormal levels of other serum enzymes; N40.1 Benign prostatic hyperplasia with lower urinary tract symptoms; R35.1 Nocturia; R80.9 Proteinuria, unspecified

== ENCOUNTER → 2025-01-15 09:49 | Outpatient (BNVA) | payer OTHER, SELFPAY | PROVIDERS: PCP Physician Assistant; Visit Provider Physician Assistant | DX: I10 Essential (primary) hypertension (principal); R74.8 Abnormal levels of other serum enzymes; N40.1 Benign prostatic hyperplasia with lower urinary tract symptoms; R35.1 Nocturia; R80.9 Proteinuria, unspecified | CPT/HCPCS: 96127 ==

== ENCOUNTER 2025-02-16 09:34 | Outpatient (AMB) | payer OTHER, SELFPAY ==
--- NOTE | 2025-02-16 09:44 | AM.OFFWIN_ITS ---
Intake Vital Signs 02/16/25 09:45 Weight 252 lb BP 116/70 Blood Pressure Location Rt brachial Position Sitting Pulse 62 Pulse Source Pulse Oximeter Pulse Oximetry (%) 98 Oxygen Delivery Method Room Air Intake Visit Reasons: EP-rash both legs Intake Note: Patient here for rash on bilat legs that have been present for a couple of weeks with no improvement. Patient Tobacco Use Status: Never used Tobacco Allergies No Known Allergies Allergy (Verified 02/16/25 09:47) Do you need a note to return to daycare/school/sports/work: No HPI HPI Comments History of Present Illness Details History of Present Illness - The patient is a 54 year old male pres enting with a rash on the lower legs. - The rash developed two weeks ago and h as worsened, characterized by severe itching. - It extends from both lower legs to the ankles and is associated with warmth and swelling. - Patient reports temporary relief from calamine lotion but no lasting effect. - Presenting additional symptom of leg e manasa, specifically noted as a recent development. - He has a history of hypertension with a recent adjustment in amlodipine dosage. - Contact with potential allergens such as new socks or detergents discussed as probable triggers but it is unclear what he came in contact with when this started. Physical Exam General: Cooperative, healthy appearing, comfortable, no acute distress and well developed Orientation: Patient oriented x3 Limitations: No limitations Head: Normal to inspection Ears: Hearing grossly normal bilaterally Nose: Normal External nose present Face and sinus: Normal facial exam Eyes: Appearance normal, both eyes and all related structures Neck: Normal visual inspection and Yes full ROM Respiratory: Normal respiratory effort and able to speak in complete sentences. Skin: papular confluent rash with erythematous base on bilateral lower legs extending from mid calf to ankles Neuro: Patient oriented x3 Extremities: trace non pitting edema bilateral lower extremities PFSH Medical History Colon cancer screening Hypertensive heart disease LVH (left ventricular hypertrophy) History of anxiety BPH (benign prostatic hyperplasia) Lipoma Hypertension Surgical History Hx of colonoscopy History of left knee surgery History of arthroscopy of right knee Family History Father Hypertension Mother No problems noted. Daughter Autism Sister Non-Hodgkin lymphoma Brother Myocardial infarction Social History Household Members: Family Housing: House Are you a primary career development specialist to a significant other at home: No Do you presently have visiting nurse or other home services: No Alcohol intake: current Alcohol intake frequency: a few times a week Patient Tobacco Use Status: Never used Tobacco e-Cigarette/Vaping Use: Never Used Second Hand Smoke Exposure: No service: No Current occupational status: employed Cognitive needs: No Hearing needs: No Vision needs: No Review of Systems Const All systems reviewed & are unremarkable except as noted in HPI and below Physical Exam Vital Signs: Last Vital Signs Pulse 62 02/16/25 09:45 BP 116/70 02/16/25 09:45 Pulse Ox 98 02/16/25 09:45 Oxygen Delivery Method Room Air 02/16/25 09:45 Assessment & Plan Assessment & Plan (1) Contact dermatitis: Code(s): L25.9 - Unspecified contact dermatitis, unspecified cause Qualifiers: Contact dermatitis type: allergic Contact dermatitis trigger: other trigger Qualified Code(s): L23.89 - Allergic contact dermatitis due to other agents Plan: Contact dermatitis with associated leg edema is the primary diagnosis. I plan to treat with an 8-day prednisone taper, alongside hydroxyzine to alleviate itching, especially at night. Prednisone may cause side effects like mood alterations or appetite changes, so administration should coincide with natural cortisol levels by taking it in the morning. I advised washing clothing to remove potential allergens and emphasized care with new garments. Leg swelling seems attributable to the dermatitis and not amlodipine, requiring no change in antihypertensive therapy yet. If symptoms persist or worsen, further evaluation will be pursued, patient should follow up with his PCP if edema continues. Patient was informed and verbally consented to the use of an ambient scribe for clinic note documentation during this visit. Medications: New prednisone take 4 tablets on days 1-2, take 3 tablets on days 3-4, take 2 tablets on days 5-6, take 1 tablet on days 7-8. 10 mg PO DIRECTED 20 tabs 0RF hydroxyzine HCl 25 mg PO BEDTIME PRN 14 tabs 0RF itching Discontinued citalopram (Celexa) Discontinued Reason: Patient no longer taking 10 mg PO DAILY 90 days 90 tabs 2RF F41.1 - Generalized anxiety disorder Coding Level of Care Code Est Pt Level 3 (94381) Diagnoses Allergic contact dermatitis due to other agents L23.89 Contact dermatitis type: allergic Contact dermatitis trigger: other trigger
[2025-02-16 09:45] VITALS: BP 116/70; PULSE 62; O2SAT 98
== END 2025-02-16 10:07 | disposition home or self-care (01) ==
PROVIDERS: PCP Physician Assistant; Visit Provider Physician Assistant
DX: L23.89 Allergic contact dermatitis due to other agents (principal)

== ENCOUNTER → 2025-02-16 09:34 | Outpatient (BNVA) | payer OTHER, SELFPAY | PROVIDERS: PCP Physician Assistant; Visit Provider Physician Assistant ==

== ENCOUNTER 2025-07-17 09:06 | Outpatient (REF) | payer OTHER, SELFPAY ==
--- OUTSIDE RECORDS SUMMARY | 2025-07-17 09:28 | XMS_ITS | Patient Health Record ---
Author Organization [facility] Address [address] [place] [address] Care Team Providers Care Chucking Machine Operator Name Role Phone Dmitri Alicia Primary Care Provider UnavailJuan Alberto Foster Unavailable [phone] Allergies No Known Allergies Reason For Referral No Information Medications Medication SIG (Take, Route, Fr equency, Duration) Notes Start Date End Date Status Metoprolol Succinate Active Social History Tobacco Use: Social History Observation Description Date Details (start date - stop date) Never Smoker NA - NA Tobacco Use/Smoking Question Answer Notes Are you a: nonsmoker Additional Findings: Tobacco Non-User Current no n-smoker Alcohol Screen Question Answer Notes Did you have a drink containing alcohol in the p ast year? Yes Points 0 Interpretation Negative Tobacco use other than smoking: Question Answer Notes Are you an other tobacco user? No Problems Problem Type SNOMED Code ICD Code Onset Dates Problem Status W/U Status Risk Notes Problem Acquired hammer toe of right foot ([id number]) Other hammer toe(s) (acquired), right foot (M20.41) Active confirmed Problem Other hammer toe(s) (acquired), left foot (M20.42) Active confirmed Plan Of Treatment Pending Test Test Name Order Date X ray : Foot, left 3V 12/04/2020 X ray : Foot, right 3V 12/04/2020 Insurance Providers Payer Name Payer Address Payer Phone Subscriber Number Group Number Insured Name Patient Relationship to Insured Coverage Start Date Coverage End Date [employer] [address] [place] [address] [phone] [id number] Levi Welsh Self - patient is the insured Medical (General) History Medical History History ICD Code High blood pressure Surgical History Surgery Date(Month/Year) colonoscopy 11/28/2020
[2025-07-17 10:02] LABS: Hematocrit 45.4 % (42.0-52.0); Hemoglobin 15.8 g/dl (14.0-18.0); Mean Corpuscular HGB Conc 34.8 g/dl (31.0-36.0); Mean Corpuscular Hemoglobin 30.5 pg (27.0-33.0); Mean Corpuscular Volume 87.6 fL (80.0-98.0); NRBC Abs Auto 0.000 X10*3/uL (0.0-0.012); NRBC Pct Auto 0.0 /100WBC (0.0-0.2); Platelet Count 345 X10*3/uL (160-400); Red Blood Count 5.18 X10*6/uL (4.60-5.80); White Blood Count 7.1 X10*3/uL (4.8-10.8)
[2025-07-17 10:59] LABS: Alanine Aminotransferase 58 U/L (0-40); Albumin Level 4.5 g/dL (3.5-5.0); Alkaline Phosphatase 126 U/L (39-117); Anion Gap 12 (12-20); Aspartate Amino Transferase 47 U/L (5-37); Blood Urea Nitrogen 17 mg/dL (9-16); Calcium 9.3 mg/dL (8.4-10.2); Carbon Dioxide 25 mmol/L (22-29); Chloride 108 mmol/L (96-108); Estimated Glomerular Filt Rate > 60; Potassium 3.9 mmol/L (3.3-5.1); Sodium 141 mmol/L (135-145); Total Protein 7.3 g/dL (6.5-8.0)
[2025-07-17 11:38] LABS: Microalbum/Creatinine Ratio Ur 27.2 ug/mg cr (<30)
== END 2025-07-17 09:07 | disposition home or self-care (01) ==
LOC: HO.LAB 09:06
PROVIDERS: PCP Physician Assistant; Visit Provider Physician Assistant
DX: I10 Essential (primary) hypertension (principal)
CPT/HCPCS: 36415; 80053; 82043; 82570; 85027

== ENCOUNTER 2025-08-20 09:48 | Outpatient (AMB) | payer OTHER, SELFPAY ==
--- NOTE | 2025-08-20 10:07 | A.OFFPC_ITS ---
Vital Signs 08/20/25 10:08 Height 5 ft 9 in Weight 248 lb 4 oz BMI 36.7 BP 130/72 Blood Pressure Location Lt brachial Position Sitting Pulse 74 Pulse Source Pulse Oximeter Temp 97.1 F Temp Source Temporal Artery Scan Pulse Oximetry (%) 96 Oxygen Delivery Method Room Air Intake Visit Reasons: Follow up Intake Note: Patient is here to follow up on HTN, BPH, JOEY. Equity Research Associate Required: No Dough Puncher: Not Required per policy Accompanied by: Self / Same As Patient Allergies No Known Allergies Allergy (Verified 08/20/25 10:16) Medication List - Last Reconciled 08/20/25 by Dmitri Alicia PA-C amlodipine 10 mg PO DAILY 90 days metoprolol succinate ER 100 mg PO DAILY 90 days sildenafil 100 mg PO DAILY 30 days tamsulosin 0.4 mg PO DAILY 90 days Tobacco use date assessed: 08/20/25 Dental Screening Dental Screen Date: 01/15/25 HPI Follow up HPI Details Patient is a 55-year-old male here today for follow-up visit. Patient has a past medical history significant for hypertension, LVH, obesity. Concern--> class 2 obesity--> he has struggled losing weight. The patient is classified as obese with a weight of 248 pounds and has expressed interest in weight management options, including medications like Wegovy. He has been advised on lifestyle modifications, including diet and exercise, to aid in weight reduction. .. Hypertension: Patient's blood pressure acceptable today in office. His most recent microalbumin has improved. He has been trying to be more physically active to lose weight. He does check his blood pressure from time to time at home and reports 130s to 140 systolic He was sent home blood pressures been stable on current dose of metoprolol and amlodipine. Unfortunately noted microalbuminuria likely secondary to his elevated blood pressure readings. He otherwise denies any chest discomfort, shortness of breath, headaches. .. 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 An ultrasound is scheduled for September to further evaluate the liver condition. Laboratory Tests 09/30/23 09/30/23 01/02/25 11:26 11:27 09:39 RBC Hgb Creatinine 0.85 Fasting Glucose Alkaline Phosphata se 154 H 115 AST 57 H ALT 69 H Cholesterol 146 LDL Cholesterol, C alc 79 PSA Screen 2.87 Urine Microalbumin 104.0 01/02/25 07/17/25 07/17/25 09:40 09:16 09:20 RBC 5.18 Hgb 15.8 Creatinine 0.88 Fasting Glucose 100 H Alkaline Phosphata se AST 47 H ALT Cholesterol LDL Cholesterol, C alc PSA Screen Urine Microalbumin 161.0 38.0 PFSH Medical History Colon cancer screening Hypertensive heart disease LVH (left ventricular hypertrophy) History of anxiety BPH (benign prostatic hyperplasia) Lipoma Hypertension Surgical History Hx of colonoscopy History of left knee surgery History of arthroscopy of right knee Family History Father Hypertension Mother No problems noted. Daughter Autism Sister Non-Hodgkin lymphoma Brother Myocardial infarction Social History Household Members: Family Housing: House Are you a primary pet care technician to a significant other at home: No Do you presently have visiting nurse or other home services: No Alcohol intake: current Alcohol intake frequency: a few times a week Patient Tobacco Use Status: Never used Tobacco e-Cigarette/Vaping Use: Never Used Second Hand Smoke Exposure: No service: No Current occupational status: employed Cognitive needs: No Hearing needs: No Vision needs: No Questionnaire PHQ-9 Over the last 2 weeks, how often have you been bothered by any of the following problems? 1. Little interest or pleasure in doing things: not at all 2. Feeling down, depressed, or hopeless: not at all 3. Trouble falling or staying asleep, or sleeping too much: not at all 4. Feeling tired or having little energy: not at all 5. Poor appetite or overeating: not at all 6. Feeling bad about yourself - or that you are a failure or have let yourself or your family down: not at all 7. Trouble concentrating on things, such as reading the newspaper or watching television: not at all 8. Moving or speaking so slowly that other people could have noticed. Or the opposite - being so fidgety or restless that you have been moving around a lot more than usual: not at all 9. Thoughts that you would be better off or of hurting yourself in some way: not at all Total score: 0 Depression Screening Interpretation: Negative Depression Screening Done: Yes [id number] - PHQ-9 Billing: Yes Source: Developed by Drs. Levi Salgado, Mayra Ibarra, Shabbir Mills and colleagues, with an educational carisa from [employer]. Thrive Questionnaire Date Thrive assessed: 08/20/25 I am a: Patient What is your living situation today?: I have a steady place to live Within the past 12 months, did the food you bought not last and you didn't have the money to get more?: Never true Within the past 12 months, did you worry whether your food would run out before you got money to buy more?: Never true Do you have trouble paying for medicines?: No Do you have trouble getting transportation to medical appointments?: No Do you have trouble paying your heating and electricity bill?: No Do you have trouble taking care of your child, family member or friend?: No Do you have trouble with day-to-day activities such as bathing, preparing meals, shopping, managing finances, etc.?: No Are you currently unemployed and looking for a job?: No Are you interested in more education?: No Please select the resources that you would like help with: None Currently or been in a relationship where the following occur: No concerns reported THRIVE Score: 0 AUDIT C Alcohol Use Questionnaire (AUDIT-C) 1. How often do you have a drink containing alcohol?: 2-3 times a week 2. How many drinks containing alcohol do you have on a typical day when you are drinking?: 3 or 4 3. How often do you have six or more drinks on one occasion?: Monthly Total Score: 6 JAMI-7 AMB Questionnaire JAMI-7 Date JAMI - 7 assessed: 01/15/25 Feeling nervous, anxious, or on edge: 0 = Not at all Not being able to stop or control worryin = Not at all Worrying too much about different things: 0 = Not at all Trouble relaxin = Not at all Being so restless that it is hard to sit still: 0 = Not at all Becoming easily annoyed or irritable: 0 = Not at all Feeling afraid as if something awful might happen: 0 = Not at all Total JAMI-7 score (0-4 normal; 5-9 mild; 10-14 moderate; 15-21 severe): 0 Source: Developed by Drs. Levi Salgado, Mayra Ibarra, Shabbir Mills and colleagues, with an educational carisa from [employer]. JAMI-7 Assessment Billing JAMI-7 Assessment Tool: JAMI-7 Assessment 54193 Review of Systems Const Denies headache(s) Eyes Denies loss of vision ENT Denies vertigo, Denies dizziness, Denies headache(s) and Denies sore throat Card Denies chest pain, Denies leg edema and Denies lightheadedness Resp Denies cough, Denies hemoptysis and Denies wheezing GI Denies abdominal pain, Denies melena, Denies constipation, Denies diarrhea and Denies vomiting Denies dysuria, Denies urinary frequency and Denies urinary urgency Musc Denies arthralgias, Denies joint swelling, Denies numbness and Denies tingling Neuro Denies Abnormal speech present, Denies behavioral changes, Denies vertigo, Denies dizziness, Denies headache(s), Denies loss of vision, Denies memory loss, Denies numbness and Denies tingling Psych Denies anxiety, Denies behavioral changes, Denies depression, Denies memory loss and Denies panic attacks Bob/Lymph Denies easy bleeding and Denies easy bruising Aller/Immun Denies wheezing Physical exam (Primary Care) Vital Signs: Last Vital Signs Temp 97.1 F 08/20/25 10:08 Pulse 74 08/20/25 10:08 BP 130/72 08/20/25 10:08 Pulse Ox 96 08/20/25 10:08 Oxygen Delivery Method Room Air 08/20/25 10:08 BMI result Body Mass Index 36.7 BMI Assessment/Plan discussion: High BMI High, discussed plan: lifestyle, weight reduction, dietary and physical activity Tobacco/Smoking Status: Tobacco use Status Tobacco use date assessed 08/20/25 08/20/25 10:13 Patient Tobacco Use Status Never used Tobacco 08/20/25 10:13 e-Cigarette/Vaping Use Never Used 08/20/25 10:13 PHQ-9: PHQ-9 Score PHQ-9: Total score 0 08/20/25 10:16 Depression Screening Interpretation: Negative Thrive Assessment: Date of Thrive Assessment Date Thrive assessed 08/20/25 08/20/25 10:13 Currently or been in a relationship where the following occur: No concerns reported Const General: healthy appearing, no acute distress, alert and awake Nutritional Appearance: well nourished Orientation/consciousness: oriented to person, oriented to place and oriented to time HENMT Ears: TM's normal bilaterally General nose exam: Normal nasal mucous membranes and turbinates present Eyes Conjunctivae: conjunctivae normal Sclerae: sclerae normal Pupils: Equal, round and reactive pupils present Neck Neck: Yes no lymphadenopathy and Yes no JVD Thyroid: Thyroid normal Carotids: no bruits Resp Effort & Inspection: normal respiratory effort and not tachypneic Auscultation: no crackles, no rales, no rhonchi and no wheezes Cardio Rate: regular rate Rhythm: regular rhythm Heart sounds: no murmurs and normal S1 and S2 GI Palpation (GI): Soft to palpation, nontender, no hepatomegaly and no splenomegaly Auscultation: normal bowel sounds Skin General skin exam: no rashes or lesions noted and dry skin Neuro General: oriented to person, oriented to place and oriented to time Cranial nerves: Yes Equal, round and reactive pupils present Speech: No Abnormal speech present Gait exam (Neuro): Normal gait present Motor exam (neuro): no tremor noted Extrem Right upper extremity: full ROM Left upper extremity: full ROM Right lower extremity: full ROM; no edema Left lower extremity: full ROM; no edema Psych Mental Status: mental status grossly normal Speech and movement: Normal speech and movement present Affect: normal affect Attitude: cooperative Thought process: Normal thought process present Coding Level of Care Code Est Pt Level 4 (48735) Diagnoses Primary hypertension I10 Hypertension type: primary hypertension Elevated liver enzymes R74.8 BPH associated with nocturia N40.1; R35.1 Microalbuminuria R80.9 Class 2 obesity E66.812 Impaired glucose metabolism R73.09 Additional Codes PHQ-9 - 23569 - PHQ-9 Billing: Yes ([id number]) JAMI-7 Assessment Billing - JAMI-7 Assessment Tool: JAMI-7 Assessment 83125 ([id number]) Assessment & Plan Assessment & Plan (1) Hypertension: Code(s): I10 - Essential (primary) hypertension Category: Medical Qualifiers: Hypertension type: primary hypertension Qualified Code(s): I10 - Essential (primary) hypertension Plan: Patient's blood pressure acceptable today in office Continues on amlodipine, metoprolol His microalbuminuria has been improved. He will continue to monitor blood pressure at home with goal blood pressure to be below 140/90. (2) Elevated liver enzymes: Code(s): R74.8 - Abnormal levels of other serum enzymes Category: Medical Plan: Has noted elevated liver enzymes since at least 2018. He has upcoming appointment to evaluate his liver, we suspect a fatty liver here. (3) BPH associated with nocturia: Code(s): N40.1 - Benign prostatic hyperplasia with lower urinary tract symptoms; R35.1 - Nocturia Category: Medical Plan: Has noted weak urinary stream and nocturia. Will supply patient with tamsulosin to use on a daily basis for his signs symptoms of BPH (4) Microalbuminuria: Code(s): R80.9 - Proteinuria, unspecified Category: Medical Plan: As above, have noted a microalbuminuria likely secondary to his hypertension. Fortunately his microalbuminuria has been improved since previous Work on blood pressure control (5) Class 2 obesity: Code(s): E66.812 - Obesity, class 2 Category: Medical Plan: Patient does understand his BMI is over 35 and has been very difficult for him to lose weight. Has been trying better eating habits and being more physically active though has not been able to lose much weight. He is interested in trying a GLP 1 to help him lose weight. He does have obesity related comorbidities including hypertension and impaired glucose metabolism. (6) Impaired glucose metabolism: Code(s): R73.09 - Other abnormal glucose Category: Medical Plan: Noted to have slightly elevated fasting blood sugar at 100 and in 2022 his fasting blood sugar was 108. He will continue working on better eating habits to reduce his sugar Orders: Orders Hemoglobin A1c Today R73.09 - Other abnormal glucose Comprehensive [place]. Panel Fast Today I10 - Essential (primary) hypertension Complete Blood Count no Diff Today I10 - Essential (primary) hypertension Microalbumin, Random (w Creat) Today R80.9 - Proteinuria, unspecified Lipid Panel Today I10 - Essential (primary) hypertension Testosterone, Free/Total Today E66.812 - Obesity, class 2 Medications: New semaglutide (weight loss) (Jaison) administer weeks 1 through 4 of therapy 0.25 mg (0.5 mL) subcut QWEEK 2 mL 0RF 4 weeks E66.812 - Obesity, class 2, I10 - Essential (primary) hypertension Changed From tamsulosin 0.4 mg PO DAILY 90 days 90 caps 1RF N40.1 - Benign prostatic hyperplasia with lower urinary tract symptoms, R35.1 - Nocturia To tamsulosin 0.4 mg PO DAILY 30 caps 3RF 30 days N40.1 - Benign prostatic hyperplasia with lower urinary tract symptoms, R35.1 - Nocturia
[2025-08-20 10:08] VITALS: BP 130/72; PULSE 74; TEMP 36.2; O2SAT 96; BMI 36.7
--- OUTSIDE RECORDS SUMMARY | 2025-08-20 10:45 | XMS_ITS | Patient Health Record ---
Author Organization [facility] [place] Address [address] [place] [address] Care Team Providers Care Artist Representative Name Role Phone Dmitri Alicia Primary Care Provider Juan Alberto Zavala Unavailable [phone] Allergies No Known Allergies Reason For Referral [...] Problem Acquired hammer toe of right foot ([id number] 105) Other hammer toe(s) (acquired), right foot (M20.41) Active confirmed Problem Acquired hammer toe of left foot ([id number] 103) Other hammer toe(s) (acquired), left foot (M20.42) Active confirmed Plan Of Treatment Pending Test Test Name Order Date X ray : Foot, left 3V 12/04/2020 X ray : Foot, right 3V 12/04/2020 Insurance Providers Payer Name Payer Address Payer Phone Subscriber Number Group Number Insured Name Patient Relationship to Insured Coverage Start Date Coverage End Date [facility] [address] [facility] [address] [id number] Levi Welsh Self - patient is the insured Medical (General) History Medical History History ICD Code High blood pressure Surgical History Surgery Date(Month/Year) colonoscopy 11/28/2020
== END 2025-08-20 10:42 | disposition home or self-care (01) ==
LOC: HO.HMCH 09:49
PROVIDERS: PCP Physician Assistant; Visit Provider Physician Assistant
DX: I10 Essential (primary) hypertension (principal); R74.8 Abnormal levels of other serum enzymes; E66.812 Obesity, class 2; Z68.36 Body mass index [BMI] 36.0-36.9, adult; N40.1 Benign prostatic hyperplasia with lower urinary tract symptoms; R35.1 Nocturia; R80.9 Proteinuria, unspecified; R73.09 Other abnormal glucose

== ENCOUNTER → 2025-08-20 09:48 | Outpatient (BNVA) | payer OTHER, SELFPAY | PROVIDERS: PCP Physician Assistant; Visit Provider Physician Assistant | DX: I10 Essential (primary) hypertension (principal); G47.33 Obstructive sleep apnea (adult) (pediatric); E66.812 Obesity, class 2; R74.8 Abnormal levels of other serum enzymes; N40.1 Benign prostatic hyperplasia with lower urinary tract symptoms; R35.1 Nocturia; R80.9 Proteinuria, unspecified; R73.09 Other abnormal glucose; Z68.36 Body mass index [BMI] 36.0-36.9, adult | CPT/HCPCS: 96127 ==

== ENCOUNTER 2025-10-08 09:17 | Outpatient (REF) | payer OTHER, SELFPAY ==
--- NOTE | ~2025-10-08 | US_ITS ---
CLINICAL HISTORY: R74.8 - Abnormal levels of other serum enzymes --- Additional Notes or Special Instructions: Elevated liver enzymes, ultrasound evaluate for fatty liver US abdomen complete Comparison: None provided Findings: The visualized pancreas is normal, tail is obscured by bowel gas. The visualized aorta and inferior vena cava are normal caliber. The liver is normal in size, right lobe length is 17.2 cm. Densely echogenic liver parenchyma with geographic hypoechogenicity in the posterior left hepatic lobe, left hepatic simple cyst 1.3 cm, right hepatic minimally complex avascular benign cyst 1.9 cm. No intrahepatic bile duct dilatation. The common duct is 4 mm in diameter. The gallbladder is normal. Negative sonographic Bonner sign. The main portal vein is patent with antegrade flow. The right kidney is normal, 11.0 cm in length. The left kidney is normal, 12.7 cm in length. The spleen is normal, 9.9 cm in length. No free fluid in the abdomen. Impression: 1. Suspect hepatic steatosis with likely focal fatty sparing posterior left lobe, liver MRI would be confirmatory if warranted. 2. Hepatic cysts. This document has been electronically signed by: Gregoria Ibarra MD on 10/08/2025 16:47:55
[2025-10-08 10:39] LABS: Hematocrit 47.3 % (42.0-52.0); Hemoglobin 16.3 g/dl (14.0-18.0); Mean Corpuscular HGB Conc 34.5 g/dl (31.0-36.0); Mean Corpuscular Hemoglobin 30.4 pg (27.0-33.0); Mean Corpuscular Volume 88.1 fL (80.0-98.0); NRBC Abs Auto 0.000 X10*3/uL (0.0-0.012); NRBC Pct Auto 0.0 /100WBC (0.0-0.2); Platelet Count 319 X10*3/uL (160-400); Red Blood Count 5.37 X10*6/uL (4.60-5.80); White Blood Count 8.8 X10*3/uL (4.8-10.8)
[2025-10-08 11:40] LABS: Alanine Aminotransferase 65 U/L (0-40); Albumin Level 4.8 g/dL (3.5-5.0); Alkaline Phosphatase 137 U/L (39-117); Anion Gap 12 (12-20); Aspartate Amino Transferase 45 U/L (5-37); Blood Urea Nitrogen 19 mg/dL (9-16); Calcium 9.4 mg/dL (8.4-10.2); Carbon Dioxide 26 mmol/L (22-29); Chloride 108 mmol/L (96-108); Cholesterol 134 mg/dL (<200); Estimated Glomerular Filt Rate > 60; HDL Cholesterol 42 mg/dL (>40); Potassium 4.3 mmol/L (3.3-5.1); Sodium 142 mmol/L (135-145); Total Protein 8.0 g/dL (6.5-8.0); Triglycerides 84 mg/dL (<150)
[2025-10-08 12:23] LABS: Microalbum/Creatinine Ratio Ur 33.7 ug/mg cr (<30)
[2025-10-14 11:28] LABS: Testosterone, Free 50.8 pg/mL (35.0-155.0)
== END 2025-10-08 09:18 | disposition home or self-care (01) ==
LOC: HO.US 09:17
PROVIDERS: PCP Physician Assistant; Visit Provider Physician Assistant
DX: R74.8 Abnormal levels of other serum enzymes (principal); I10 Essential (primary) hypertension; R80.9 Proteinuria, unspecified; E66.812 Obesity, class 2; R73.09 Other abnormal glucose
CPT/HCPCS: 36415; 76700; 80053; 80061; 82043; 82570; 83036; 84402; 84403; 85027

== ENCOUNTER → 2025-10-08 09:18 | Outpatient (BNV) | payer OTHER, SELFPAY | PROVIDERS: PCP Physician Assistant; Visit Provider Radiology Diagnostic Radiology | DX: K76.89 Other specified diseases of liver (principal) | CPT/HCPCS: 76700 ==

== ENCOUNTER 2025-11-21 09:43 | Outpatient (AMB) | payer OTHER, SELFPAY ==
[2025-11-21 09:46] VITALS: BP 140/82; PULSE 68; TEMP 36.3; O2SAT 96; BMI 36.8
--- NOTE | 2025-11-21 09:46 | A.OFFPC_ITS ---
Vital Signs 11/21/25 09:46 Height 5 ft 9 in Weight 249 lb 6 oz BMI 36.8 BP 140/82 H Blood Pressure Location Lt brachial Position Sitting Pulse 68 Pulse Source Pulse Oximeter Temp 97.3 F Temp Source Temporal Artery Scan Pulse Oximetry (%) 96 Oxygen Delivery Method Room Air Intake Visit Reasons: 3 month f/u Allergies No Known Allergies Allergy (Verified 11/21/25 09:58) Medication List - Last Reconciled 11/21/25 by Dmitri Alicia PA-C amlodipine 10 mg PO DAILY 90 days metoprolol succinate ER 100 mg PO DAILY 90 days sildenafil 100 mg PO DAILY 30 days tamsulosin 0.4 mg PO DAILY 30 days Tobacco use date assessed: 11/21/25 Dental Screening Dental Screen Date: 11/21/25 Did you have a dental visit in the last 12 months?: Yes Did you have a dental problem in the last 6 months where you did not have access to dental care?: No Was dental information given to patient?: Patient has dentist HPI 3 month f/u HPI Details Patient is a 55-year-old male here today for follow-up visit. Patient has a past medical history significant for hypertension, LVH, obesity. Concern--> For the past three months, the patient has had a left Achilles tendon injury that occurred during a work training. He describes it as a possible partial rupture and reports it is sore to the touch, and he is unable to walk on it for a day or two after attempting to exercise, which has hindered his weight loss efforts. .. class 2 obesity--> he has struggled losing weight. Has followed up with [place] weight management and is eager to start weight management medication. Unfortunately GLP 1 have not been covered by his insurance.. Have suspicion that he has a obstructive sleep apnea though he is apprehensive on doing another sleep study as he was not able to sleep with the testing at home.. .. Hypertension: Patient's blood pressure elevated today in office.. His most re cent microalbumin has improved. He has been trying to be more physically active to lose weight. He does check his blood pressure from time to time at home and reports 130s to 140 systolic He was sent home blood pressures been stable on current dose of metoprolol and amlodipine. Unfortunately noted microalbuminuria likely secondary to his elevated blood pressure readings. He otherwise denies any chest discomfort, shortness of breath, headaches. .. Nonalcoholic fatty liver disease: The patient has a history of fatty liver disease, suspected to be due to non- alcoholic fatty liver disease, with liver function tests persistently elevated since 2017. An ultrasound is scheduled for September to further evaluate the liver condition Laboratory Tests 07/17/25 10/08/25 10/08/25 09:16 10:03 10:09 RBC 5.37 Creatinine 0.95 Hemoglobin A1c % 5.5 AST 45 H ALT 65 H LDL Cholesterol, C alc 76 Total Testosterone 348 Urine Microalbumin 38.0 59.0 PFSH Medical History Colon cancer screening Hypertensive heart disease LVH (left ventricular hypertrophy) History of anxiety BPH (benign prostatic hyperplasia) Lipoma Hypertension Surgical History History of wisdom tooth extraction Hx of colonoscopy History of left knee surgery History of arthroscopy of right knee Family History Father Hypertension Mother Hypertension Daughter Autism Sister Non-Hodgkin lymphoma Brother Myocardial infarction Social History Household Members: Family Housing: House Are you a primary nurse wound care to a significant other at home: No Do you presently have visiting nurse or other home services: No Alcohol intake: current Alcohol intake frequency: a few times a week Patient Tobacco Use Status: Never used Tobacco e-Cigarette/Vaping Use: Never Used Second Hand Smoke Exposure: No service: No Current occupational status: employed Cognitive needs: No Hearing needs: No Vision needs: No Questionnaire PHQ-9 Over the last 2 weeks, how often have you been bothered by any of the following problems? 1. Little interest or pleasure in doing things: not at all 2. Feeling down, depressed, or hopeless: not at all 3. Trouble falling or staying asleep, or sleeping too much: not at all 4. Feeling tired or having little energy: not at all 5. Poor appetite or overeating: not at all 6. Feeling bad about yourself - or that you are a failure or have let yourself or your family down: not at all 7. Trouble concentrating on things, such as reading the newspaper or watching television: not at all 8. Moving or speaking so slowly that other people could have noticed. Or the opposite - being so fidgety or restless that you have been moving around a lot more than usual: not at all 9. Thoughts that you would be better off or of hurting yourself in some way: not at all Total score: 0 Depression Screening Interpretation: Negative Depression Screening Done: Yes Source: Developed by Drs. Levi Salgado, Mayra Ibarra, Shabbir Mills and colleagues, with an educational carisa from [employer]. Thrive Questionnaire Date Thrive assessed: 08/20/25 I am a: Patient What is your living situation today?: I have a steady place to live Within the past 12 months, did the food you bought not last and you didn't have the money to get more?: Never true Within the past 12 months, did you worry whether your food would run out before you got money to buy more?: Never true Do you have trouble paying for medicines?: No Do you have trouble getting transportation to medical appointments?: No Do you have trouble paying your heating and electricity bill?: No Do you have trouble taking care of your child, family member or friend?: No Do you have trouble with day-to-day activities such as bathing, preparing meals, shopping, managing finances, etc.?: No Are you currently unemployed and looking for a job?: No Are you interested in more education?: No Currently or been in a relationship where the following occur: No concerns reported THRIVE Score: 0 AUDIT C Alcohol Use Questionnaire (AUDIT-C) 1. How often do you have a drink containing alcohol?: 2-3 times a week 2. How many drinks containing alcohol do you have on a typical day when you are drinking?: 3 or 4 3. How often do you have six or more drinks on one occasion?: Monthly Total Score: 6 JAMI-7 AMB Questionnaire JAMI-7 Date JAMI - 7 assessed: 01/15/25 Feeling nervous, anxious, or on edge: 0 = Not at all Not being able to stop or control worryin = Not at all Worrying too much about different things: 0 = Not at all Trouble relaxin = Not at all Being so restless that it is hard to sit still: 0 = Not at all Becoming easily annoyed or irritable: 0 = Not at all Feeling afraid as if something awful might happen: 0 = Not at all Total JAMI-7 score (0-4 normal; 5-9 mild; 10-14 moderate; 15-21 severe): 0 Source: Developed by Drs. Levi Salgado, Mayra Ibarra, Shabbir Mills and colleagues, with an educational carisa from [employer]. Review of Systems Const Denies headache(s) Eyes Denies loss of vision ENT Denies vertigo, Denies dizziness, Denies headache(s) and Denies sore throat Card Denies chest pain, Denies leg edema and Denies lightheadedness Resp Denies cough, Denies hemoptysis and Denies wheezing GI Denies abdominal pain, Denies melena, Denies constipation, Denies diarrhea and Denies vomiting Denies dysuria, Denies urinary frequency and Denies urinary urgency Musc Denies arthralgias, Denies joint swelling, Denies numbness and Denies tingling Neuro Denies Abnormal speech present, Denies behavioral changes, Denies vertigo, Denies dizziness, Denies headache(s), Denies loss of vision, Denies memory loss, Denies numbness and Denies tingling Psych Denies anxiety, Denies behavioral changes, Denies depression, Denies memory loss and Denies panic attacks Bob/Lymph Denies easy bleeding and Denies easy bruising Aller/Immun Denies wheezing Physical exam (Primary Care) Vital Signs: Last Vital Signs Temp 97.3 F 11/21/25 09:46 Pulse 68 11/21/25 09:46 BP 140/82 H 11/21/25 09:46 Pulse Ox 96 11/21/25 09:46 Oxygen Delivery Method Room Air 11/21/25 09:46 BMI result Body Mass Index 36.8 BMI Assessment/Plan discussion: High BMI High, discussed plan: lifestyle, weight reduction, dietary and physical activity Tobacco/Smoking Status: Tobacco use Status Tobacco use date assessed 11/21/25 11/21/25 09:50 Patient Tobacco Use Status Never used Tobacco 11/21/25 09:46 e-Cigarette/Vaping Use Never Used 11/21/25 09:46 PHQ-9: PHQ-9 Score PHQ-9: Total score 0 11/21/25 09:59 Depression Screening Interpretation: Negative Thrive Assessment: Date of Thrive Assessment Date Thrive assessed 08/20/25 11/21/25 09:46 Currently or been in a relationship where the following occur: No concerns reported Const General: healthy appearing, no acute distress, alert and awake Nutritional Appearance: well nourished Orientation/consciousness: oriented to person, oriented to place and oriented to time HENMT Ears: TM's normal bilaterally General nose exam: Normal nasal mucous membranes and turbinates present Eyes Conjunctivae: conjunctivae normal Sclerae: sclerae normal Pupils: Equal, round and reactive pupils present Neck Neck: Yes no lymphadenopathy and Yes no JVD Thyroid: Thyroid normal Carotids: no bruits Resp Effort & Inspection: normal respiratory effort and not tachypneic Auscultation: no crackles, no rales, no rhonchi and no wheezes Cardio Rate: regular rate Rhythm: regular rhythm Heart sounds: no murmurs and normal S1 and S2 GI Palpation (GI): Soft to palpation, nontender, no hepatomegaly and no splenomegaly Auscultation: normal bowel sounds Skin General skin exam: no rashes or lesions noted and dry skin Neuro General: oriented to person, oriented to place and oriented to time Cranial nerves: Yes Equal, round and reactive pupils present Speech: No Abnormal speech present Gait exam (Neuro): Normal gait present Motor exam (neuro): no tremor noted Extrem Right upper extremity: full ROM Left upper extremity: full ROM Right lower extremity: full ROM; no edema Left lower extremity: full ROM; no edema Psych Mental Status: mental status grossly normal Speech and movement: Normal speech and movement present Affect: normal affect Attitude: cooperative Thought process: Normal thought process present Coding Level of Care Code Est Pt Level 4 (31875) Diagnoses Primary hypertension I10 Hypertension type: primary hypertension Microalbuminuria R80.9 Class 2 obesity E66.812 Impaired glucose metabolism R73.09 Injury of left Achilles tendon, subsequent encounter S86.002D Encounter type: subsequent encounter Assessment & Plan Assessment & Plan (1) Hypertension: Code(s): I10 - Essential (primary) hypertension Category: Medical Qualifiers: Hypertension type: primary hypertension Qualified Code(s): I10 - Essential (primary) hypertension Plan: Patient's blood pressure slightly elevated today in office, he reports at home blood pressures have been stable 130 systolic Continues on amlodipine, metoprolol His microalbuminuria has been improved. He will continue to monitor blood pressure at home with goal blood pressure to be below 140/90. (2) Microalbuminuria: Code(s): R80.9 - Proteinuria, unspecified Category: Medical Plan: As above, have noted a microalbuminuria likely secondary to his hypertension. Fortunately his microalbuminuria has been improved since previous will Work on blood pressure control and weight reduction with lifestyle and dietary modifications (3) Class 2 obesity: Code(s): E66.812 - Obesity, class 2 Category: Medical Plan: Patient has had an intake appointment with weight management. Unfortunately GLP 1 have not been covered through insurance. He would like to work on weight reduction with [place] [facility] management [facility] and perhaps get back on a GLP 1. I proposed that his symptoms of low energy and libido might be related to undiagnosed obstructive sleep apnea (JOEY). I recommended he consider a repeat home sleep study, explaining that a diagnosis of [id number] JOEY could serve as an indication for his insurance to cover a GLP-1 agonist injection for weight loss. (4) Impaired glucose metabolism: Code(s): R73.09 - Other abnormal glucose Category: Medical Plan: Patient's most recent fasting blood sugar acceptable, A1c normal. Will continue working on lifestyle and dietary modifications to reduce his blood sugars. (5) Injury of left Achilles tendon: Code(s): S86.002A - Unspecified injury of left Achilles tendon, initial encounter Category: Medical Qualifiers: Encounter type: subsequent encounter Qualified Code(s): S86.002D - Unspecified injury of left Achilles tendon, subsequent encounter Plan: Regarding his left Achilles pain, I explained that it seems to be a sprain or tendinopathy and advised conservative management with anti-inflammatories, ice, and gentle stretching. I informed him that surgery is not indicated as he has maintained functionality, and he agreed to hold off on physical therapy or a podiatry consult for now. Orders: Orders Hemoglobin A1c 11/21/25 R73.09 - Other abnormal glucose Lipid Panel 11/21/25 I11.9 - Hypertensive heart disease without heart failure Prostate Specific Antigen Scr 11/21/25 I11.9 - Hypertensive heart disease without heart failure, Z12.5 - Encounter for screening for malignant neoplasm of prostate Comprehensive [place]. Panel Fast 11/21/25 R73.09 - Other abnormal glucose Microalbumin, Random (w Creat) 11/21/25 I10 - Essential (primary) hypertension Complete Blood Count no Diff 11/21/25 I10 - Essential (primary) hypertension
--- OUTSIDE RECORDS SUMMARY | 2025-11-21 10:19 | XMS_ITS | Patient Health Record ---
Author Organization [facility] [place] Address [address] [address] Care Team Providers Care Cattle Rancher Name Role Phone Dmitri Alicia Primary Care Provider Unavailab CaraballostacyJuan Alberto Unavailable [phone] Allergies No Known Allergies Reason For Referral [...] Problem Acquired hammer toe of right foot ([id number] 105) Other hammer toe(s) (acquired), right foot (M20.41) Active confirmed Problem Acquired hammer toe of left foot ([id number] 103) Other hammer toe(s) (acquired), left foot (M20.42) Active confirmed Plan Of Treatment Pending Test Test Name Order Date X ray : Foot, left 3V 12/04/2020 X ray : Foot, right 3V 12/04/2020 Insurance Providers Payer Name Payer Address Payer Phone Subscriber Number Group Number Insured Name Patient Relationship to Insured Coverage Start Date Coverage End Date [facility] [address] [place] [id number] Levi Welsh Self - patient is the insured Medical (General) History Medical History History ICD Code High blood pressure Surgical History Surgery Date(Month/Year) colonoscopy 11/28/2020
== END 2025-11-21 10:17 | disposition home or self-care (01) ==
LOC: HO.HMCH 09:44
PROVIDERS: PCP Physician Assistant; Visit Provider Physician Assistant
DX: I10 Essential (primary) hypertension (principal); R80.9 Proteinuria, unspecified; E66.812 Obesity, class 2; R73.09 Other abnormal glucose; S86.002D Unspecified injury of left Achilles tendon, subsequent encounter; Z68.36 Body mass index [BMI] 36.0-36.9, adult